=== PATIENT | female | born 1995 | race Caucasian/White ===

== ENCOUNTER 2016-11-04 18:34 | Emergency (ER) | payer OTHER, BC ==
[~2016-11-04] VITALS: Ht 157.5 cm; Wt 45.2 kg
[~2016-11-04 18:34] MED LIST: FLUO20CA36 PO; LEVO1TAB19 PO; POTTAB2 PO
[2016-11-04 18:51] VITALS: TEMP 37; Ht 157.5 cm; Wt 45.2 kg
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
[2016-11-04] MEDS ORDERED: OXYCODONE/ACETAMINOPHEN 5-325 TAB PO STA (19:45)
[2016-11-04] MEDS ORDERED: IBUPROFEN 600 MG TAB PO STA (19:45)
[2016-11-04] MEDS ORDERED: PERCOCET HOME PACK PO ONE (19:45)
[2016-11-04] MEDS ORDERED: OXYC-57 PO (19:48)
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
[2016-11-04] MEDS ORDERED: BCPILLS PO (20:18)
[2016-11-04] MEDS ORDERED: CITA20TA4 PO (20:18)
[2016-11-04] MEDS ORDERED: LORA-741 PO (20:18)
[2016-11-04 20:25] VITALS: BP 108/71; PULSE 88; O2SAT 100
== END 2016-11-04 20:25 | disposition home or self-care (01) ==
LOC: C.EDB 18:35 → C.EDD 20:25
DX: M25.562 Pain in left knee (principal); V49.9XXA Car occupant (driver) (passenger) injured in unspecified traffic accident, initial encounter

== ENCOUNTER 2017-06-26 20:07 | Emergency (ER) | payer BC ==
[~2017-06-26] VITALS: Ht 157.5 cm; Wt 45.5 kg
[~2017-06-26 20:07] MED LIST changes: +BCPILLS PO; +CITA20TA4 PO; -FLUO20CA36 PO; -LEVO1TAB19 PO; +LORA-741 PO; -POTTAB2 PO
[2017-06-26 20:19] VITALS: TEMP 36.6; Ht 157.5 cm; Wt 45.5 kg
--- NOTE | 2017-06-26 21:37 | EMERGENCY ROOM VISIT NOTE ---
History Report prepared by Lalo: Luan Ornelas Under the Supervision of: Dr. Ashvin Merlos M.D. First contact with patient: 21:25 Chief Complaint: HEMATURIA Stated Complaint: HEMATURIA Nursing Triage Summary: Hematuria starting today. Denies pain. History of UTI History of Present Illness The patient is a 22 year old female with a history of UTIs who presents to the Emergency Room with complaints of persistent hematuria that started around 2 and a half hours ago. She adds that she has had some burning with urination as well as increased frequency of urination. The patient was here in 2010 with similar symptoms and was diagnosed with hemorrhagic cystitis. She denies any back pain, nausea, vomiting, chest pain, shortness of breath, headaches, leg pain, leg swelling, or rashes. The patient notes no chance of . Source of History: patient Onset: 2 and a half hours ago Position: other (global - hematuria) Timing: other (persistent) Associated Symptoms: + urinary symptoms (increased frequency, burning with urination), No headache, No chest pain, No SOB, No nausea, No vomiting, No back pain, No rash Note: Associated symptoms: Denies leg pain or leg swelling. Review of Systems See HPI for pertinent positives & negatives. A total of 10 systems reviewed and were otherwise negative. Past Medical & Surgical Medical Problems: (1) Anorexia Old medical records were reviewed. Nurse's notes were reviewed and I agree with. Family History No pertinent family history Social History Smoking Status: Never Smoker Alcohol Use: none Housing Status: lives with family Occupation Status: employed, student Current/Historical Medications Scheduled Nitrofurantoin Monohyd Macrocr (Macrobid), 100 MG PO BID Allergies Coded Allergies: No Known Allergies (Unverified , 11/04/16) Physical Exam Vital Signs Date Time Temp Pulse Resp B/P (MAP) Pulse Ox O2 Delivery O2 Flow Rate FiO2 06/26/17 22:44 80 18 101/59 100 06/26/17 20:19 36.6 89 16 110/75 98 Room Air Physical Exam General: Well developed well nourished non ill-appearing young female in no acute distress, breathing comfortably on room air. Normal speech HEENT: Normal cephalic atraumatic. Pupils are equal round and reactive to light. Extraocular movements are intact. Oropharynx is pink with moist mucous membranes. No swelling of the mouth lips or tongue. Neck: Supple with a midline trachea. No meningeal signs or stiffness, no JVD or bruits. No Stridor. Chest: Clear to auscultation bilaterally. No wheezes or rhonchi. No increased work of breathing. Heart: regular rate and rhythm. Abdomen: Soft nontender, nondistended without rebound guarding or rigidity. Extremities: No cyanosis clubbing or edema. No calf tenderness or assymetry Spine/Back. Non tender to palpation. No CVA tenderness Skin: Good turgor without rashes. Neurologic exam: Cranial nerves two through 12 are intact. Motor and sensation are intact and symmetrical throughout. Medical Decision & Procedures Laboratory Results Test 06/26/17 21:15 Urine Color RED Urine Appearance CLOUDY (CLEAR) Urine pH 6.0 (4.5-7.5) Urine Specific [place] >= 1.030 (1.000-1.030) Urine Protein 2+ (NEG) Urine Glucose (UA) NEG (NEG) Urine Ketones TRACE (NEG) Urine Occult Blood 3+ (NEG) Urine Nitrite NEG (NEG) Urine Bilirubin NEG (NEG) Urine Urobilinogen POS (NEG) Urine Leukocyte Esterase TRACE (NEG) Urine RBC >30 /hpf (0-4) Urine WBC >30 /hpf (0-5) Urine Epithelial Cells >30 /lpf (0-5) Urine Bacteria 1+ (NEG) Urine Test NEG (NEG) Laboratory studies as stated above per my review. Medications Administered Medications (Trade) Dose Ordered Sig/Hailey Route Start Time Stop Time Status Last Admin Dose Admin Nitrofurantoin (Macrobid Homepack 100MG) 1 homepack UD ONCE PO 06/26/17 22:30 06/26/17 22:31 DC 06/26/17 22:43 1 HOMEPACK ED Course 2132: Past medical records reviewed. The patient was evaluated in room B8, and a complete history and physical examination were performed. 9: Upon reevaluation, the patient is resting comfortably. I discussed the results and treatment plan with her. She verbalized agreement of the treatment plan. The patient was discharged home. 2230: Ordered Macrobid Homepack 100MG 1 homepack PO. Medical Decision Differentials include but are not limited to: UTI, hemorrhagic cystitis, kidney stone, , anemia. This patient comes in as described above. She has frequency dysuria and hematuria. She's had hemorrhagic cystitis before. She looks well and is nontoxic. She is afebrile. Clinically, she has nothing to suggest pyelonephritis or kidney stone. She does not think did not is that she is . test confirms this. I will discharge her home. We will start her on Macrobid twice a day for 7 days. She was encouraged to return if: Worsening of symptoms, back pain, fever or chills, not tolerate fluids, any new problems or concerns. She should follow up with her doctor this week for recheck if not better. Medication Reconcilliation Current Medication List: was personally reviewed by me Blood Pressure Screening Patient's blood pressure: Normal blood pressure Impression Primary Impression: Hemorrhagic cystitis Scribe Attestation The scribe's documentation has been prepared under my direction and personally reviewed by me in its entirety. I confirm that the note above accurately reflects all work, treatment, procedures, and medical decision making performed by me. Departure Information Dispostion Home / Self-Care Prescriptions Nitrofurantoin Monohyd Macrocr (Macrobid) 100 Mg Cap 100 MG PO BID for 14 Days, #28 CAP Prov: Ashvin Merlos M.D. 06/26/17 Referrals Genia Carrizales D.O. (PCP) Patient Instructions My [facility] Additional Instructions Rest. Drink plenty of fluids. Use Macrobid 100 mg twice a day for 7 daysantibiotic Return to the ER if: Fever or chills, back pain, worsening symptoms, vomiting, any new problems or concerns. Follow-up with your doctor in a couple days for recheck if not better or return to ER any point if symptoms worsen
[2017-06-26] MEDS ORDERED: NITR-5 PO (21:48)
[2017-06-26 22:15] LABS: MANUAL MICROSCOPIC REQUIRED? YES; URINE APPEARANCE CLOUDY (CLEAR); URINE BILIRUBIN NEG (NEG); URINE COLOR RED; URINE NITRITE NEG (NEG); URINE SPECIFIC GRAVITY >= 1.030 (1.000-1.030); UROBILINOGEN POS (NEG)
[2017-06-26 22:20] LABS: PREG INTERNAL NEGATIVE QC NEG CLEAR BACKGROUND; PREG INTERNAL POSITIVE QC POS CONTROL LINE; REVIEW REQ? NO
[2017-06-26 22:22] LABS: URINE BACTERIA 1+ (NEG); URINE RBC >30 /hpf (0-4); URINE WBC >30 /hpf (0-5)
[2017-06-26] MEDS ORDERED: MACROBID 100MG HOME PACK 1 EA VIAL PO ONE (22:30)
[2017-06-26 22:44] VITALS: BP 101/59; PULSE 80; O2SAT 100
--- NOTE | 2017-06-29 19:19 | Pharmacy Progress Note ---
ED Pharmacist Culture FollowUp Date of Service: Jun 29, 2017. Patient was sent home with a prescription for nitrofurantoin, which should cover the Staph saprophyticus growing from the patient's urine culture.
== END 2017-06-26 22:45 | disposition home or self-care (01) ==
LOC: C.EDB 20:08
DX: N30.91 Cystitis, unspecified with hematuria (principal); Z87.440 Personal history of urinary (tract) infections

== ENCOUNTER → 2017-12-12 | Outpatient (CLI) | payer BC ==
--- NOTE | 2017-12-12 10:44 | DIAGNOSTIC IMAGING REPORT ---
PELVIC COMPLETE NON OB CLINICAL HISTORY: ABNORMAL UTERINE BLEEDING,N93.9,Z11.3 COMPARISON STUDY: None FINDINGS: The uterus measured 7.7 cm. The endometrial stripe measured 5 mm. The right ovary measured 4.0 cm maximum dimension with several small subcentimeter follicular cysts. Normal vascular flow.. The left ovary measured 3.5 cm maximum dimension with several small subcentimeter follicular cyst. Normal vascular flow.. There is no ultrasonographic evidence of ovarian torsion. It should be noted that ovarian torsion can be present with normal Doppler ultrasonographic findings. There was no evidence of pathologic free pelvic fluid. IMPRESSION: Normal study. The above report was generated using voice recognition software. It may contain grammatical, syntax or spelling errors. Electronically signed by: Yung Chisholm M.D. 12/12/2017 10:42 AM Dictated Date/Time: 12/12/2017 10:41 AM
== END | disposition home or self-care (01) ==
LOC: C.ULTR 09:53
PROVIDERS: ATTEND Physician Assistant
DX: Z11.3 Encounter for screening for infections with a predominantly sexual mode of transmission (principal); N93.9 Abnormal uterine and vaginal bleeding, unspecified

== ENCOUNTER 2020-04-30 07:44 | Inpatient (IN) ==
[2020-04-30] MEDS ORDERED: PENICILLIN G POTASSIUM 6 MU in DEXTROSE 5% 250 ML IV STA (08:01)
[2020-04-30] MEDS ORDERED: OXYTOCIN 30 UNITS/500 ML BAG IV PRN ×2 (08:01)
--- NOTE | 2020-04-30 08:06 | History & Physical Report ---
Date of Service April 30, 2020 Induction at 39+ weeks for suspected large baby we have discussed this option of induction to avoid complications from further large baby we also discussed the option of section her last ultrasound suggested a baby and the estimated weight of 78 percentile and we have recommended induction the patient is amenable to this today Assessment & Plan (1) Macrosomia: Cervix now favorable after cervical Jamison last night we will start Pitocin penicillin for GBS positive patient's questions answered we do not have access to rapid COVID testing thus we will follow hospital policy and with appropriate PPE for delivery Admission and Anticipated Discharge Date Admission Date: April 30, 2020 History of Present Illness Primary Care Provider: Zabrina Donnelly PA-C Allergies Allergy/AdvReac Type Severity Reaction Status Date / Time No Known Allergies Allergy Verified 04/30/20 08:03 Home Medications Home Medications Medication Instructions Recorded Confirmed Type prenat.vits,olga,[id number]-iuoo-ygkpu 1 tab PO DAILY 09/04/19 04/30/20 History ferrous sulfate [iron] 25 mg PO DAILY 04/29/20 04/30/20 History Patient History Social History Preferred Language: Wolof marital status: marital status details: Gallo Person (29) [phone] Current Living Situation: Spouse Current Living Situation Comment: lives with spouse, 3 dogs, 1 cat, changing litter current occupational status: employed 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) Vital Signs (Past 12 Hours) Vital Signs Pulse BP 04/30/20 07:54 109 H 120/77 Coding Level of Care Code None Diagnoses Macrosomia P08.0
[2020-04-30 08:32] LABS: Hematocrit (blood only) 34.3 % (37-47); Hemoglobin 11.6 g/dL (12.0-16.0); Mean Corpuscular Hemoglobin 29.4 pg (25-34); Mean Corpuscular Volume 86.8 fL (80-100); Platelet Count 370 K/uL (130-400); RDW Coefficient of Variation 13.5 % (11.5-14.5); RDW Standard Deviation 43.4 fL (36.4-46.3); Red Blood Count 3.95 M/uL (4.2-5.4); White Blood Count 12.24 K/uL (4.8-10.8)
[2020-04-30 08:33] LABS: Mean Corpuscular Hgb Conc 33.8 g/dL (32-36)
[2020-04-30] MEDS: LACTATED RINGER'S 1,000 ML IV PRN ×2 (08:45→12:10)
[2020-04-30] MEDS ORDERED: ePHEDrine sulfate 50 MG/ML AMP ONE (11:36)
[2020-04-30] MEDS ORDERED: BUPIVACAINE 0.25% 30 ML VIAL ONE (11:37)
[2020-04-30] MEDS ORDERED: fentaNYL citrate 100 MCG/2 ML VIAL ONE (11:37)
[2020-04-30] MEDS ORDERED: fentaNYL 2MCG/ML ROPIV 1.25MG/ML 100 ML BAG EPI ONE (11:37)
--- NOTE | 2020-04-30 12:10 | Anesthesiology Consultation ---
Date of Service April 30, 2020 Assessment & Plan (1) Encounter for pre-operative examination: Chart Review Chart Review: Patient NOT seen in Pre Admission Testing and Acceptable Risk for Labor Epidural Consults Requested none ASA ASA2 Proposed Anesthesia Anesthesia Type: Labor Epidural Risk / Benefits Reviewed With: PT / POA / Parent / Guardian, Accepts Plan and Informed Consent Obtained History Height/Weight Height: 5 ft 2 in Weight: 69.853 kg Allergies Allergy/AdvReac Type Severity Reaction Status Date / Time No Known Allergies Allergy Verified 04/30/20 08:03 Medications Home Medications Medication Instructions Recorded Confirmed Last Taken prenat.vits,olga,[id number]-veki-xddzp 1 tab PO DAILY 09/04/19 04/30/20 04/29/20 21:00 ferrous sulfate [iron] 25 mg PO DAILY 04/29/20 04/30/20 04/28/20 08:00 Active Medications Generic Name Dose Route Start Last Admin Trade Name Freq PRN Reason Stop Dose Admin Lactated Ringer's 1,000 mls @ 125 mls/hr 04/30/20 08:01 04/30/20 12:10 Lr IV 05/02/20 08:00 125 mls/hr .Q8H PRN Administration L&D Protocol Protocol Penicillin G Potassium 3 mu/ 106 mls @ 100 mls/hr 04/30/20 08:01 04/30/20 12:32 Dextrose IV 05/10/20 08:00 100 mls/hr Q4H PRN Administration Give until delivery Oxytocin 30 units in 500 mls @ 12 mls/hr 04/30/20 08:01 04/30/20 12:39 Pitocin IV 05/02/20 08:00 0.72 units/hr .Q24H PRN 12 mls/hr Labor Induction/Augmentation Titration Protocol 0.72 UNITS/HR NPO Date Last Intake of Fluids: 04/30/20 Time Last Intake of Fluids: 12:07 Date Last Intake of Solids: 04/30/20 Time Last Intake of Solids: 07:00 Exercise / Class Metabolic Activity II 4-5 Yardwork/Stairs/Walk up hill Past Anesthesia History No Hx of Anesthesia Complications History of PONV History of PONV Social History Smoking Status: Never smoker Hx Alcohol Use: No Hx Substance Use: No substance use type: does not use Review of Systems Patient denies history of abnormal bleeding or bleeding disorder. Patient denies active use of anticoagulants other than low dose aspirin. Patient denies numbness, tingling or weakness in lower extremities. Negative for chest pain or shortness of breath. Patient denies active symptoms of GERD. Physical Exam Vital Signs Last Vital Signs Temp 36.8 C 04/30/20 11:00 Pulse 99 H 04/30/20 12:00 Resp 18 04/30/20 11:00 BP 105/75 04/30/20 11:51 Pulse Ox 98 04/30/20 12:00 Constitutional not obese (Gravid uterus) ENMT Mouth: no TMJ abnormality and oral opening not small Thyromental Distance: > or= 3.5 Finger Breadths Mallampati Class: I Neck normal visual inspection; neck extension not limited Respiratory normal respiratory effort Auscultation: lungs clear to auscultation bilaterally Cardiovascular Rate/Rhythm: regular rate and regular rhythm Heart Sounds: no murmur Neurologic moves all extremities Motor/Sensory: no sensory deficit Psychiatric Orientation: alert and oriented x 3 Testing Laboratory Results 04/30/20 08:18
[2020-04-30] MEDS: PENICILLIN G POTASSIUM 3 MU in DEXTROSE 5% 100 ML IV PRN ×2 (12:32→16:27)
[2020-04-30] MEDS ORDERED: ONDANSETRON INJ 2 MG/ML 2 ML VIAL IV PRN ×2 (12:47→19:05)
[2020-04-30] MEDS ORDERED: fentaNYL 2MCG/ML ROPIV 1.25MG/ML 100 ML BAG EPI PRN (12:47)
[2020-04-30] MEDS ORDERED: NALOXONE HCL 1 MG in SODIUM CHLORIDE 0.9% 1000ML 1,000 ML IV PRN ×2 (12:47→19:05)
[2020-04-30] MEDS ORDERED: DiphenhydrAMINE HCL 50 MG/ML VIAL IV PRN ×2 (12:47→19:05)
[2020-04-30] MEDS ORDERED: NALOXONE HCL 0.4 MG/1 ML VIAL/CARP IV PRN ×2 (12:47→19:05)
[2020-04-30] MEDS ORDERED: ePHEDrine sulfate 50 MG/ML AMP IV PRN ×3 (12:47→19:05)
--- NOTE | 2020-04-30 14:24 | Labor Progress Brief Note ---
Date of Service April 30, 2020 Patient is on Pitocin has received 2 doses of antibiotics for group B strep her contraction pattern is good at this stage with an external toco she was 4 cm when we rupture her membranes. If there is no change in the next [address] an IUPC we did discuss the issue that this is thought to be a larger baby and she is a smaller person so our threshold for might be somewhat lower however will make her best effort and heart rate currently is category 1 Assessment & Plan Admission and Anticipated Discharge Date Admission Date: April 30, 2020 Results & Data ([facility]) Vital Signs (Past 12 Hours) Vital Signs Temp Pulse Resp BP Pulse Ox 04/30/20 14:20 98 H 97 04/30/20 14:17 95 H 109/63 04/30/20 14:15 93 H 96 04/30/20 14:12 92 H 110/69 04/30/20 14:10 95 H 96 04/30/20 14:08 92 H 111/70 04/30/20 14:05 93 H 96 04/30/20 14:01 93 H 108/64 04/30/20 14:00 89 96 04/30/20 13:58 86 110/67 04/30/20 13:55 97 H 97 04/30/20 13:52 89 116/70 04/30/20 13:50 91 H 97 04/30/20 13:47 85 117/71 04/30/20 13:45 89 97 04/30/20 13:42 90 118/68 04/30/20 13:40 94 H 98 04/30/20 13:37 99 H 131/61 04/30/20 13:35 86 98 04/30/20 13:30 95 H 18 97 04/30/20 13:26 91 H 117/73 04/30/20 13:25 88 97 04/30/20 13:24 98 H 113/77 04/30/20 13:20 103 H 97 04/30/20 13:15 94 H 18 118/68 97 04/30/20 13:13 100 H 125/69 04/30/20 13:11 107 H 112/66 04/30/20 13:10 103 H 97 04/30/20 13:09 96 H 112/65 04/30/20 13:07 106 H 116/67 04/30/20 13:05 96 H 97 04/30/20 13:04 89 118/66 04/30/20 13:03 108 H 107/69 04/30/20 13:01 100 H 104/63 04/30/20 13:00 98.1 F 99 H 16 97 04/30/20 12:59 107 H 110/62 04/30/20 12:57 106 H 105/64 04/30/20 12:55 101 H 101/58 L 97 04/30/20 12:53 100 H 103/58 L 04/30/20 12:51 107 H 118/71 04/30/20 12:50 112 H 98 04/30/20 12:49 105 H 116/64 04/30/20 12:47 113 H 121/68 04/30/20 12:45 97 H 18 110/69 97 04/30/20 12:43 99 H 112/66 04/30/20 12:41 109 H 122/69 04/30/20 12:40 114 H 97 04/30/20 12:39 108 H 109/66 04/30/20 12:37 101 H 106/59 L 04/30/20 12:35 101 H 104/56 L 97 04/30/20 12:33 100 H 106/61 04/30/20 12:31 105 H 16 110/71 04/30/20 12:30 105 H 98 04/30/20 12:29 103 H 112/71 04/30/20 12:25 103 H 99 04/30/20 12:20 95 H 99 04/30/20 12:15 99 H 100 04/30/20 12:10 106 H 100 04/30/20 12:05 98 H 99 04/30/20 12:00 99 H 98 04/30/20 11:55 90 98 04/30/20 11:51 103 H 105/75 04/30/20 11:50 103 H 99 04/30/20 11:45 91 H 99 04/30/20 11:00 98.2 F 04/30/20 10:51 93 H 123/74 04/30/20 09:53 86 112/69 04/30/20 08:50 110 H 118/76 04/30/20 08:01 98.1 F 18 04/30/20 07:54 109 H 120/77 Coding Level of Care Code None
--- NOTE | 2020-04-30 15:50 | Labor Progress Brief Note ---
Date of Service April 30, 2020 Patient is still 4 cm there is some increased molding as well I have placed an IUPC and her [place] units are 270 per 10 minutes this is more than adequate labor and she is on 20 milliunits of Pitocin the baby is suspected to be large there is no descent of the baby either is -2 station patient is aware that her is likely we will reassess after 5 PM Assessment & Plan Admission and Anticipated Discharge Date Admission Date: April 30, 2020 Results & Data ([facility]) Vital Signs (Past 12 Hours) Vital Signs Temp Pulse Resp BP Pulse Ox 04/30/20 15:48 86 101/58 L 04/30/20 15:45 93 H 96 04/30/20 15:40 94 H 96 04/30/20 15:35 104 H 96 04/30/20 15:34 123 H 113/79 04/30/20 15:30 105 H 96 04/30/20 15:25 99 H 96 04/30/20 15:20 97 H 96 04/30/20 15:19 94 H 115/69 04/30/20 15:15 95 H 97 04/30/20 15:10 95 H 97 04/30/20 15:05 96 H 96 04/30/20 15:04 90 112/66 04/30/20 15:00 99 H 96 04/30/20 14:55 98.6 F 94 H 18 96 04/30/20 14:50 102 H 96 04/30/20 14:48 102 H 122/61 04/30/20 14:45 114 H 16 97 04/30/20 14:40 89 96 04/30/20 14:35 86 97 04/30/20 14:31 93 H 109/68 04/30/20 14:30 89 18 95 04/30/20 14:27 98 H 110/66 04/30/20 14:25 99 H 96 04/30/20 14:23 98 H 111/69 04/30/20 14:20 98 H 97 04/30/20 14:17 95 H 109/63 04/30/20 14:15 93 H 16 96 04/30/20 14:12 92 H 110/69 04/30/20 14:10 95 H 96 04/30/20 14:08 92 H 111/70 04/30/20 14:05 93 H 96 04/30/20 14:01 93 H 108/64 04/30/20 14:00 89 18 96 04/30/20 13:58 86 110/67 04/30/20 13:55 97 H 97 04/30/20 13:52 89 116/70 04/30/20 13:50 91 H 97 04/30/20 13:47 85 117/71 04/30/20 13:45 89 16 97 04/30/20 13:42 90 118/68 04/30/20 13:40 94 H 98 04/30/20 13:37 99 H 131/61 04/30/20 13:35 86 98 04/30/20 13:30 95 H 18 97 04/30/20 13:26 91 H 117/73 04/30/20 13:25 88 97 04/30/20 13:24 98 H 113/77 04/30/20 13:20 103 H 97 04/30/20 13:15 94 H 18 118/68 97 04/30/20 13:13 100 H 125/69 04/30/20 13:11 107 H 112/66 04/30/20 13:10 103 H 97 04/30/20 13:09 96 H 112/65 04/30/20 13:07 106 H 116/67 04/30/20 13:05 96 H 97 04/30/20 13:04 89 118/66 04/30/20 13:03 108 H 107/69 04/30/20 13:01 100 H 104/63 04/30/20 13:00 98.1 F 99 H 16 97 04/30/20 12:59 107 H 110/62 04/30/20 12:57 106 H 105/64 04/30/20 12:55 101 H 101/58 L 97 04/30/20 12:53 100 H 103/58 L 04/30/20 12:51 107 H 118/71 04/30/20 12:50 112 H 98 04/30/20 12:49 105 H 116/64 04/30/20 12:47 113 H 121/68 04/30/20 12:45 97 H 18 110/69 97 04/30/20 12:43 99 H 112/66 04/30/20 12:41 109 H 122/69 04/30/20 12:40 114 H 97 0720 12:39 108 H 109/66 04/30/20 12:37 101 H 106/59 L 04/30/20 12:35 101 H 104/56 L 97 04/30/20 12:33 100 H 106/61 04/30/20 12:31 105 H 16 110/71 04/30/20 12:30 105 H 98 04/30/20 12:29 103 H 112/71 04/30/20 12:25 103 H 99 04/30/20 12:20 95 H 99 04/30/20 12:15 99 H 100 04/30/20 12:10 106 H 100 04/30/20 12:05 98 H 99 04/30/20 12:00 99 H 98 04/30/20 11:55 90 98 04/30/20 11:51 103 H 105/75 04/30/20 11:50 103 H 99 04/30/20 11:45 91 H 99 04/30/20 11:00 98.2 F 04/30/20 10:51 93 H 123/74 04/30/20 09:53 86 112/69 04/30/20 08:50 110 H 118/76 04/30/20 08:01 98.1 F 04/30/20 07:54 109 H 120/77 Coding Level of Care Code None
--- NOTE | 2020-04-30 17:09 | Labor Progress Brief Note ---
Date of Service April 30, 2020 [facility] shows excellent contractions cervix is reassessed she is still 4 cm -2 station there is some cervical swelling noted and increased At palpated The heart rate is category 1 baby I have offered to keep going with induction of labor I have also offered as there was a worried this baby was too big the patient wishes to proceed with I think this is reasonable considering her suspicions of the baby. Again alternative of labor was discussed section. The patient was counseled to the nature of the procedure including alternatives such as labor. Risks were discussed including bleeding infection injury to bowel bladder ureter vessels and even baby. Deep Vein thrombosis, pulmonary embolus discussed. Breakdown of incision reviewed. Deep vein thrombosis pulmonary embolus hernia and failure of the incision to heal were discussed Patient verbalized understanding of this and was given ample time to ask questions Assessment & Plan Admission and Anticipated Discharge Date Admission Date: April 30, 2020 Results & Data ([facility]) Vital Signs (Past 12 Hours) Vital Signs Temp Pulse Resp BP Pulse Ox 04/30/20 17:05 101 H 97 04/30/20 17:04 103 H 112/73 04/30/20 17:00 105 H 95 04/30/20 16:55 96 H 96 04/30/20 16:52 85 94 04/30/20 16:50 87 95 04/30/20 16:49 93 H 101/56 L 04/30/20 16:45 98 H 96 04/30/20 16:40 93 H 98 04/30/20 16:35 91 H 96 04/30/20 16:33 104 H 103/56 L 04/30/20 16:30 94 H 18 96 04/30/20 16:25 92 H 97 04/30/20 16:20 91 H 96 04/30/20 16:18 90 102/55 L 04/30/20 16:15 95 H 96 04/30/20 16:10 98 H 97 04/30/20 16:05 93 H 97 04/30/20 16:04 101 H 106/66 04/30/20 16:00 87 18 96 04/30/20 15:55 91 H 96 04/30/20 15:50 103 H 97 04/30/20 15:48 86 101/58 L 04/30/20 15:45 93 H 96 04/30/20 15:40 94 H 96 04/30/20 15:35 104 H 96 04/30/20 15:34 123 H 113/79 04/30/20 15:30 105 H 18 96 04/30/20 15:25 99 H 96 04/30/20 15:20 97 H 96 04/30/20 15:19 94 H 115/69 04/30/20 15:15 95 H 97 04/30/20 15:10 95 H 97 04/30/20 15:05 96 H 96 04/30/20 15:04 90 112/66 04/30/20 15:00 99 H 96 04/30/20 14:55 98.6 F 94 H 18 96 04/30/20 14:50 102 H 96 04/30/20 14:48 102 H 122/61 04/30/20 14:45 114 H 16 97 04/30/20 14:40 89 96 04/30/20 14:35 86 97 04/30/20 14:31 93 H 109/68 04/30/20 14:30 89 18 95 04/30/20 14:27 98 H 110/66 04/30/20 14:25 99 H 96 04/30/20 14:23 98 H 111/69 04/30/20 14:20 98 H 97 04/30/20 14:17 95 H 109/63 04/30/20 14:15 93 H 16 96 04/30/20 14:12 92 H 110/69 04/30/20 14:10 95 H 96 04/30/20 14:08 92 H 111/70 04/30/20 14:05 93 H 96 04/30/20 14:01 93 H 108/64 04/30/20 14:00 89 18 96 04/30/20 13:58 86 110/67 04/30/20 13:55 97 H 97 04/30/20 13:52 89 116/70 04/30/20 13:50 91 H 97 04/30/20 13:47 85 117/71 04/30/20 13:45 89 16 97 04/30/20 13:42 90 118/68 04/30/20 13:40 94 H 98 04/30/20 13:37 99 H 131/61 04/30/20 13:35 86 98 04/30/20 13:30 95 H 18 97 04/30/20 13:26 91 H 117/73 04/30/20 13:25 88 97 04/30/20 13:24 98 H 113/77 04/30/20 13:20 103 H 97 04/30/20 13:15 94 H 18 118/68 97 04/30/20 13:13 100 H 125/69 04/30/20 13:11 107 H 112/66 04/30/20 13:10 103 H 97 04/30/20 13:09 96 H 112/65 04/30/20 13:07 106 H 116/67 04/30/20 13:05 96 H 97 04/30/20 13:04 89 118/66 04/30/20 13:03 108 H 107/69 04/30/20 13:01 100 H 104/63 04/30/20 13:00 98.1 F 99 H 16 97 04/30/20 12:59 107 H 110/62 04/30/20 12:57 106 H 105/64 04/30/20 12:55 101 H 101/58 L 97 04/30/20 12:53 100 H 103/58 L 04/30/20 12:51 107 H 118/71 04/30/20 12:50 112 H 98 04/30/20 12:49 105 H 116/64 04/30/20 12:47 113 H 121/68 04/30/20 12:45 97 H 18 110/69 97 04/30/20 12:43 99 H 112/66 04/30/20 12:41 109 H 122/69 04/30/20 12:40 114 H 97 04/30/20 12:39 108 H 109/66 04/30/20 12:37 101 H 106/59 L 04/30/20 12:35 101 H 104/56 L 97 04/30/20 12:33 100 H 106/61 04/30/20 12:31 105 H 16 110/71 04/30/20 12:30 105 H 98 04/30/20 12:29 103 H 112/71 04/30/20 12:25 103 H 99 04/30/20 12:20 95 H 99 04/30/20 12:15 99 H 100 04/30/20 12:10 106 H 100 04/30/20 12:05 98 H 99 04/30/20 12:00 99 H 98 04/30/20 11:55 90 98 04/30/20 11:51 103 H 105/75 04/30/20 11:50 103 H 99 04/30/20 11:45 91 H 99 04/30/20 11:00 98.2 F 04/30/20 10:51 93 H 123/74 04/30/20 09:53 86 112/69 04/30/20 08:50 110 H 118/76 04/30/20 08:01 98.1 F 04/30/20 07:54 109 H 120/77 Coding Level of Care Code None
[2020-04-30] MEDS ORDERED: CEFAZOLIN 2000MG 2,000 MG/15 ML SYR IV SCH (17:15)
[2020-04-30] MEDS ORDERED: LACTATED RINGER'S 1,000 ML IV SCH ×2 (17:15→19:11)
[2020-04-30] MEDS ORDERED: CITRIC ACID/SODIUM CITRATE 15 ML UDC PO SCH (17:15)
[2020-04-30] MEDS ORDERED: LIDOCAINE/EPINEPHRINE 2% 1:200,000 20 ML SDV ONE (17:30)
[2020-04-30] MEDS ORDERED: ONDANSETRON INJ 2 MG/ML 2 ML VIAL ONE (17:46)
[2020-04-30] MEDS ORDERED: OXYTOCIN 10 UNITS/ML VIAL ONE (17:59)
[2020-04-30] MEDS ORDERED: MoRPHine SULFATE PF 1 MG/ML 10 ML AMP/VIAL ONE (18:16)
[2020-04-30] MEDS ORDERED: KETOROLAC 30 MG/ML VIAL ONE (18:25)
[2020-04-30] MEDS ORDERED: PHENYLEPHRINE 100MCG/ML 5ML SYR ONE (18:39)
[2020-04-30] MEDS ORDERED: PROMETHAZINE HCL INJ 25 MG/ML 1 ML VIAL ONE (18:39)
--- NOTE | 2020-04-30 18:43 | Operative Report ---
PG Post Operative Report Pre & Post Diagnosis Operation Date: 04/30/20 17:45 <No data on this case meets the specified criteria> Failure to progress in labor I identified the patient and participated in the time-out.: Yes Procedure Operation Date: 04/30/20 17:45 <No data on this case meets the specified criteria> Low segment transverse section Surgeon Cara Garcia MD, FACOG [employer] . Estimated Blood Loss 500 Findings Consistent with Post-Op Diagnosis Specimens Cord gases and cord blood Description of Procedure Regional anesthetic was given by anesthesia patient had a Jamison catheter inserted by nursing patient was prepped and draped in supine position with a leftward tilt preoperative antibiotics were given timeout performed Pickups with teeth were used to test the skin site and it was found adequate for incision scalpel used to make a Pfannenstiel incision cutting down through subcutaneous fat through the fascia fascia was then dissected laterally with the curved Osman's fascia was released superiorly and inferiorly from the rectus muscles with the curved Osman scissors, rectus muscle split peritoneal cavity entered in a superior location. Opening enlarged to allow exposure bladder retractor placed Metzenbaums used to dissect away the bladder flap low segment transverse incision made on the uterus with scalpel entry was done bluntly with the creel operator's finger hysterotomy incision extended with the creel operator's finger in the usual fashion baby was delivered then by flexion of the head and pressure from the digital sales assistant on the abdomen mouth and then nares were suctioned baby was then delivered fully without difficulty without excessive force live vigorous infant cord clamped and cut cord gases obtained cord blood obtained placenta removed manually within ensured all placenta removed with a moist lap sponge uterus exteriorized IV Pitocin had been started by anesthesia and uterine tone improved. The uterus was closed in 2 layers first layer and 0 Monocryl running locked second layer 0 Monocryl nonlocked after generous irrigation and suction of the cul-de-sac and bladder flap regions hemostasis was excellent uterus was placed back in the peritoneal cavity and hemostasis was excellent rectus muscles were inspected and found to be dry fascia closed with 0 Vicryl subcutaneous fat closed with 3-0 Vicryl prior to this subcutaneous fat was irrigated skin closed with 4-0 subcuticular Monocryl incision Steri-Stripped urine was clear at the end of the procedure uterus and adnexa were normal I attest to the content of the Intraoperative Record and any orders documented therein. Any exceptions are noted below.
[2020-04-30] MEDS ORDERED: HYDROmorphone INJ 0.5 MG/0.5 ML SYR IV PRN (19:05)
[2020-04-30] MEDS ORDERED: LACTATED RINGER'S 500 ML IV PRN (19:05)
[2020-04-30] MEDS ORDERED: PROMETHAZINE HCL 25 MG in SODIUM CHLORIDE 0.9% 50 ML IV PRN (19:05)
[2020-04-30] MEDS ORDERED: NALOXONE HCL 0.08 MG in SYRINGE 1.8 ML IV PRN (19:05)
[2020-04-30] MEDS ORDERED: ACETAMINOPHEN 1000 MG/100 ML IV IV PRN (19:05)
[2020-04-30] MEDS ORDERED: ATROPINE SULFATE 0.1 MG/ML 10ML SYR IV PRN (19:05)
[2020-04-30] MEDS ORDERED: MoRPHine SULFATE PF 1 MG/ML 10 ML AMP/VIAL EPI ONE (19:05)
--- NOTE | 2020-04-30 19:05 | Anesthesia Procedure Note ---
Date of Service April 30, 2020 Anesthesia Post Epidural Note Vital Signs Vital Signs: Temp Pulse Resp BP Pulse Ox 37.0 C 93 H 22 93/55 L 95 04/30/20 14:55 04/30/20 19:03 04/30/20 17:30 04/30/20 19:03 04/30/20 19:03 Pain Intensity Bilateral Abdomen: Pain Intensity: 3 Notes Mental Status: alert / awake / arousable and participated in evaluation Nausea / Vomiting: adequately controlled Pain: adequately controlled Airway Patency, RR, SpO2: stable & adequate BP & HR: stable & adequate Hydration State: stable & adequate Neuraxial Anesthesia: was administered and sensory block is resolving Anesthetic Complications: no major complications apparent and Pt Satisfied with anesthetic care Epidural: Removed without complications and With tip intact Notes: Epidural site clean, dry and intact. No signs of edema, erythema or bruising at insertion site. Pt instructed to request anesthesia if she has residual lower extremity numbness or if she develops lower extremity pain or weakness, back pain or headache.
[2020-04-30 19:06] LABS: Base Excess Cord Arterial Bld -0.3 mEq/L (-9-1.8); CO2 Cord Arterial Blood 66 mmHg (39.1-73.5); HCO3 Cord Arterial Blood 29 mmol/L (19.7-28.5); PO2 Cord Arterial Blood 20 mmHg (4.1-31.7); pH Cord Arterial Blood 7.26 (7.1-7.38)
[2020-04-30] MEDS ORDERED: SUPERCREAM 0.870% 15 GM JAR EXT PRN (19:11)
[2020-04-30] MEDS ORDERED: DIPHTHERIA/TETANUS/PERTUSSIS 0.5 ML SYR/VIAL IM ONE (19:11)
[2020-04-30] MEDS ORDERED: MAGNESIUM HYDROXIDE SUSP 30 ML UDC PO PRN (19:11)
[2020-04-30] MEDS ORDERED: SENNA 8.6 MG TAB PO PRN (19:11)
[2020-04-30] MEDS ORDERED: HYDROCORTISONE ACETATE 25 MG SUPP PR PRN (19:11)
[2020-04-30] MEDS ORDERED: BENZOCAINE 20% AER SPR 82.5 GM CAN EXT PRN (19:11)
[2020-04-30 19:12] LABS: Oxygen Sat Cord Arterial Blood < 60.0 % (<60)
[2020-04-30 19:13] LABS: Base Excess Cord Venous Blood -1.6 mEq/L (-7.7-1.9); Cord Venous Blood HCO3 25 mmol/L (18.4-26.8); Cord Venous Blood PCO2 47 mmHg (30.4-57.2); Cord Venous Blood PO2 35 mmHg (14.1-43.3); Cord Venous Blood pH 7.34 (7.20-7.44); O2 Saturation Cord Venous Bld 73.6 % (<68)
[2020-04-30] MEDS ORDERED: SODIUM CHLORIDE 0.9% 1000ML 1,000 ML IV SCH (19:15)
[2020-04-30] MEDS ORDERED: DC INTRASPINAL MORPHINE SCH (19:15)
[2020-04-30] MEDS ORDERED: NO NARCOTICS OR SEDATIVES SCH (19:15)
--- NOTE | 2020-04-30 19:16 | Anesthesiology Progress Note ---
Date of Service April 30, 2020 Anesthesia Post Procedure Vital Signs Vital Signs: Temp Pulse Resp BP Pulse Ox 04/30/20 19:13 84 98/58 L 95 04/30/20 19:08 89 96 04/30/20 19:03 93 H 93/55 L 95 04/30/20 18:58 94 H 96 04/30/20 18:53 92 H 96/50 L 93 04/30/20 17:48 122 H 113/70 04/30/20 17:45 110 H 97 04/30/20 17:40 108 H 96 04/30/20 17:39 105 H 94 04/30/20 17:35 102 H 98 04/30/20 17:33 107 H 117/79 04/30/20 17:30 106 H 22 97 04/30/20 17:25 106 H 97 04/30/20 17:20 116 H 95 04/30/20 17:18 116 H 118/78 04/30/20 17:15 109 H 96 04/30/20 17:10 115 H 96 04/30/20 17:05 101 H 97 04/30/20 17:04 103 H 112/73 04/30/20 17:00 105 H 95 04/30/20 16:55 96 H 96 04/30/20 16:52 85 94 04/30/20 16:50 87 95 04/30/20 16:49 93 H 101/56 L 04/30/20 16:45 98 H 96 04/30/20 16:40 93 H 98 04/30/20 16:35 91 H 96 04/30/20 16:33 104 H 103/56 L 04/30/20 16:30 94 H 18 96 04/30/20 16:25 92 H 97 04/30/20 16:20 91 H 96 04/30/20 16:18 90 102/55 L 04/30/20 16:15 95 H 96 04/30/20 16:10 98 H 97 04/30/20 16:05 93 H 97 04/30/20 16:04 101 H 106/66 04/30/20 16:00 87 18 96 04/30/20 15:55 91 H 96 04/30/20 15:50 103 H 97 04/30/20 15:48 86 101/58 L 04/30/20 15:45 93 H 96 04/30/20 15:40 94 H 96 04/30/20 15:35 104 H 96 04/30/20 15:34 123 H 113/79 04/30/20 15:30 105 H 18 96 04/30/20 15:25 99 H 96 04/30/20 15:20 97 H 96 04/30/20 15:19 94 H 115/69 04/30/20 15:15 95 H 97 04/30/20 15:10 95 H 97 04/30/20 15:05 96 H 96 04/30/20 15:04 90 112/66 04/30/20 15:00 99 H 96 04/30/20 14:55 37.0 C 94 H 18 96 04/30/20 14:50 102 H 96 04/30/20 14:48 102 H 122/61 04/30/20 14:45 114 H 16 97 04/30/20 14:40 89 96 04/30/20 14:35 86 97 04/30/20 14:31 93 H 109/68 04/30/20 14:30 89 18 95 04/30/20 14:27 98 H 110/66 04/30/20 14:25 99 H 96 04/30/20 14:23 98 H 111/69 04/30/20 14:20 98 H 97 04/30/20 14:17 95 H 109/63 04/30/20 14:15 93 H 16 96 04/30/20 14:12 92 H 110/69 04/30/20 14:10 95 H 96 04/30/20 14:08 92 H 111/70 04/30/20 14:05 93 H 96 04/30/20 14:01 93 H 108/64 04/30/20 14:00 89 18 96 04/30/20 13:58 86 110/67 04/30/20 13:55 97 H 97 04/30/20 13:52 89 116/70 04/30/20 13:50 91 H 97 04/30/20 13:47 85 117/71 04/30/20 13:45 89 16 97 04/30/20 13:42 90 118/68 04/30/20 13:40 94 H 98 04/30/20 13:37 99 H 131/61 04/30/20 13:35 86 98 04/30/20 13:30 95 H 18 97 07/10/20 13:26 91 H 117/73 04/30/20 13:25 88 97 04/30/20 13:24 98 H 113/77 04/30/20 13:20 103 H 97 04/30/20 13:15 94 H 18 118/68 97 04/30/20 13:13 100 H 125/69 04/30/20 13:11 107 H 112/66 04/30/20 13:10 103 H 97 04/30/20 13:09 96 H 112/65 04/30/20 13:07 106 H 116/67 04/30/20 13:05 96 H 97 04/30/20 13:04 89 118/66 04/30/20 13:03 108 H 107/69 04/30/20 13:01 100 H 104/63 04/30/20 13:00 36.7 C 99 H 16 97 04/30/20 12:59 107 H 110/62 04/30/20 12:57 106 H 105/64 04/30/20 12:55 101 H 101/58 L 97 04/30/20 12:53 100 H 103/58 L 04/30/20 12:51 107 H 118/71 04/30/20 12:50 112 H 98 04/30/20 12:49 105 H 116/64 04/30/20 12:47 113 H 121/68 04/30/20 12:45 97 H 18 110/69 97 04/30/20 12:43 99 H 112/66 04/30/20 12:41 109 H 122/69 04/30/20 12:40 114 H 97 04/30/20 12:39 108 H 109/66 04/30/20 12:37 101 H 106/59 L 04/30/20 12:35 101 H 104/56 L 97 04/30/20 12:33 100 H 106/61 04/30/20 12:31 105 H 16 110/71 04/30/20 12:30 105 H 98 04/30/20 12:29 103 H 112/71 04/30/20 12:25 103 H 99 04/30/20 12:20 95 H 99 04/30/20 12:15 99 H 100 04/30/20 12:10 106 H 100 04/30/20 12:05 98 H 99 04/30/20 12:00 99 H 98 04/30/20 11:55 90 98 04/30/20 11:51 103 H 105/75 04/30/20 11:50 103 H 99 04/30/20 11:45 91 H 99 04/30/20 11:00 36.8 C 18 04/30/20 10:51 93 H 123/74 04/30/20 09:53 86 112/69 04/30/20 08:50 110 H 118/76 04/30/20 08:01 36.7 C 04/30/20 07:54 109 H 120/77 Pain Intensity Bilateral Abdomen: Pain Intensity: 3 Transfer of Care Handoff Completed per policy Notes Mental Status: alert / awake / arousable and participated in evaluation Nausea / Vomiting: adequately controlled Pain: adequately controlled Airway Patency, RR, SpO2: stable & adequate BP & HR: stable & adequate Hydration State: stable & adequate Neuraxial Anesthesia: was administered and sensory block is resolving Anesthetic Complications: no major complications apparent and Pt Satisfied with anesthetic care
[2020-04-30] MEDS: OXYTOCIN 20 UNITS in LACTATED RINGER'S 1,000 ML IV SCH (19:38)
[2020-04-30] MEDS: SIMETHICONE 80 MG CHEW PO SCH (21:14)
[2020-04-30] MEDS: DOCUSATE SODIUM 100 MG CAP PO SCH (21:14)
[2020-04-30] MEDS: KETOROLAC 30 MG/ML VIAL IV PRN (21:27)
[2020-05-01] MEDS: OXYTOCIN 20 UNITS in LACTATED RINGER'S 1,000 ML IV SCH (04:04)
[2020-05-01 05:40] LABS: Basophils # (auto) 0.01 K/uL (0-0.2); Basophils % (auto) 0.1 %; Eosinophils # (auto) 0.02 K/uL (0-0.5); Eosinophils % (auto) 0.1 %; Hematocrit (blood only) 32.3 % (37-47); Hemoglobin 10.4 g/dL (12.0-16.0); Immature Granulocytes # (auto) 0.05 K/uL (0.00-0.02); Immature Granulocytes % (auto) 0.3 %; Lymphocytes # (auto) 1.64 K/uL (1.2-3.4); Lymphocytes % (auto) 9.6 %; Mean Corpuscular Hemoglobin 28.7 pg (25-34); Mean Corpuscular Hgb Conc 32.2 g/dL (32-36); Mean Corpuscular Volume 89.2 fL (80-100); Mean Platelet Volume 9.9 fL (7.4-10.4); Monocytes # (auto) 1.13 K/uL (0.11-0.59); Monocytes % (auto) 6.6 %; Neutrophils # (auto) 14.29 K/uL (1.4-6.5); Neutrophils % (auto) 83.3 %; Platelet Count 347 K/uL (130-400); RDW Coefficient of Variation 13.5 % (11.5-14.5); RDW Standard Deviation 44.2 fL (36.4-46.3); Red Blood Count 3.62 M/uL (4.2-5.4); White Blood Count 17.14 K/uL (4.8-10.8)
[2020-05-01] MEDS ORDERED: LACTATED RINGER'S 500 ML IV ONE (07:20)
--- NOTE | 2020-05-01 07:33 | Obstetrical Progress Note ---
Date of Service May 01, 2020 Assessment & Plan (1) state: cont current care Physical Exam Constitutional WD/WN, vitals as above Respiratory normal respiratory effort, lungs clear to auscultation Cardiovascular RRR, no murmur, no edema Gastrointestinal (Abdomen) normal bowel sounds, soft, nontender, no hepatosplenomegaly (Incision CDI ) Results & Data ([facility]) Vital Signs (Past 12 Hours) Vital Signs Temp Pulse Pulse Resp BP BP Pulse Ox 05/01/20 06:25 16 94 05/01/20 05:45 16 96 05/01/20 04:45 97.9 F 97 H 20 118/75 96 05/01/20 03:18 16 95 05/01/20 02:00 18 97 05/01/20 01:15 20 97 05/01/20 00:00 18 96 04/30/20 23:05 99.1 F 93 H 18 112/68 96 04/30/20 22:00 18 97 04/30/20 21:45 99.0 F 94 H 20 107/70 95 04/30/20 21:13 98 H 107/61 96 04/30/20 21:08 92 H 95 04/30/20 21:03 107 H 116/64 94 04/30/20 20:58 110 H 93 04/30/20 20:53 98.2 F 98 H 20 111/77 97 04/30/20 20:48 93 H 96 04/30/20 20:43 91 H 111/77 96 04/30/20 20:38 88 96 04/30/20 20:33 97 H 105/78 97 04/30/20 20:28 95 H 96 04/30/20 20:25 98.2 F 93 H 20 104/67 04/30/20 20:23 97 H 96 04/30/20 20:18 99 H 96 04/30/20 20:13 91 H 98 04/30/20 20:08 106 H 98 04/30/20 20:03 85 109/67 97 04/30/20 19:58 105 H 99 04/30/20 19:56 82 100/64 04/30/20 19:55 88 164/129 H 04/30/20 19:53 91 H 86/51 L 100 04/30/20 19:48 76 97 04/30/20 19:43 90 12 100/57 L 96 04/30/20 19:38 76 95 04/30/20 19:34 16 L 106/57 L 04/30/20 19:33 81 86/58 L 98
[2020-05-01] MEDS: SIMETHICONE 80 MG CHEW PO SCH ×4 (07:35→21:28)
[2020-05-01] MEDS: DOCUSATE SODIUM 100 MG CAP PO SCH ×2 (07:35→21:29)
[2020-05-01] MEDS: KETOROLAC 30 MG/ML VIAL IV PRN (07:35)
[2020-05-01] MEDS: FERROUS SULFATE 325 MG TAB PO SCH (07:35)
[2020-05-01] MEDS: PRENATAL VITAMIN 1 TAB PO SCH (07:35)
[2020-05-01] MEDS ORDERED: NON-FORMULARY MEDICATION (Prenat.Vits,Cal,Min-Iron-Folic 1 TAB) PO SCH (09:00)
[2020-05-01] MEDS ORDERED: PROMETHAZINE HCL 25 MG in SODIUM CHLORIDE 0.9% 50 ML IV PRN (13:06)
[2020-05-01] MEDS ORDERED: ONDANSETRON INJ 2 MG/ML 2 ML VIAL IV PRN (13:06)
[2020-05-01] MEDS ORDERED: MEPERIDINE HCL 50 MG/ML CARP IV PRN (13:06)
[2020-05-01] MEDS ORDERED: ZOLPIDEM TARTRATE 5 MG TAB PO PRN (13:06)
[2020-05-01] MEDS ORDERED: DiphenhydrAMINE HCL 50 MG/ML VIAL IV PRN (13:06)
[2020-05-01] MEDS ORDERED: KETOROLAC 30 MG/ML VIAL IV PRN (13:06)
[2020-05-01] MEDS: OXYCODONE/ACETAMINOPHEN 5mg/325mg TAB PO PRN ×2 (14:19→21:28)
[2020-05-01] MEDS: IBUPROFEN 600 MG TAB PO PRN ×2 (14:19→21:29)
[2020-05-01] MEDS ORDERED: bisacodyL 5 MG TABEC PO SCH (20:00)
[2020-05-02] MEDS: IBUPROFEN 600 MG TAB PO PRN ×3 (04:05→12:44)
[2020-05-02] MEDS: OXYCODONE/ACETAMINOPHEN 5mg/325mg TAB PO PRN ×3 (04:05→12:43)
[2020-05-02] MEDS ORDERED: bisacodyL 10 MG SUPP PR PRN (06:00)
[2020-05-02 07:12] LABS: Hematocrit (blood only) 30.7 % (37-47); Hemoglobin 10.4 g/dL (12.0-16.0)
[2020-05-02] MEDS: PRENATAL VITAMIN 1 TAB PO SCH (08:51)
[2020-05-02] MEDS: DOCUSATE SODIUM 100 MG CAP PO SCH (08:52)
[2020-05-02] MEDS: SIMETHICONE 80 MG CHEW PO SCH ×2 (08:52→12:29)
[2020-05-02] MEDS: FERROUS SULFATE 325 MG TAB PO SCH (08:52)
--- NOTE | 2020-05-02 08:56 | Obstetrical Progress Note ---
Date of Service May 02, 2020 Assessment & Plan (1) state: s/p with appropriate post-op progress patietn wishes to be discharged scripts sent to listed pharmacy follow up in 6 weeks Day #:: 2 Subjective Ambulation: ambulating normally Voiding: no voiding problems Passing Gas:: Yes Diet Tolerance:: regular diet Lochia:: Moderate Feeding Type:: breast feeding pain meds working well. Review of Systems All systems reviewed & are unremarkable except as noted in HPI & below Physical Exam Constitutional WD/WN, vitals as above Gastrointestinal (Abdomen) Inspection/Auscultation: + abdominal surgical incision (dry, intact, no erythema) Psychiatric A+Ox3, euthymic affect Genitourinary OB Exam Abdomen: + fundal height (2 below) Fundus: + firm Results & Data ([facility]) Vital Signs (Past 12 Hours) Vital Signs Temp Pulse Resp BP Pulse Ox 05/01/20 23:00 98.6 F 92 H 18 114/75 96
--- NOTE | 2020-05-03 13:45 | Discharge Summary ---
Date of Service May 03, 2020 Admission Exam (Per Admitting) Constitutional WD/WN, vitals as above Respiratory normal respiratory effort, lungs clear to auscultation Cardiovascular RRR, no murmur, no edema Gastrointestinal (Abdomen) normal bowel sounds, soft, nontender, no hepatosplenomegaly (Incision CDI ) Discharge Data Consultations 04/30/20 08:01 Consult Anesthesiology Stat Procedures Performed Operation Date: 04/30/20 17:45 Actual Procedures p Section in LD - [place]. Zafar [place] [facility] [place] (1) state: s/p with appropriate post-op progress patietn wishes to be discharged scripts sent to listed pharmacy follow up in 6 weeks Coding Level of Care Code None Diagnoses state Z39.2
== END 2020-05-02 13:15 | disposition home or self-care (01) | DRG 788 ==
LOC: 4S1 07:44 → 4S2 21:34

== ENCOUNTER 2022-05-29 05:29 | Inpatient (IN) ==
--- NOTE | 2022-05-22 09:49 | Anesthesiology Consultation ---
Date of Service May 22, 2022 Assessment & Plan (1) Encounter for pre-operative examination: Chart Review Chart Review: tip puncher initiated Per nursing assessment 05/22/2022, patient denies any recent travel. No known COVID infection in the past 90 days. Patient is not vaccinated for COVID. No known Covid positive exposures or Covid related symptoms. Preop Covid testing scheduled 05/26/22= will await results Patient seen by cardiology 03/27/2022 = Patient referred for evaluation of tachycardia. Could be multifactorial in origin. Could be just related to . However baseline history of low BPthus cannot exclude autonomic dysfunction. With recent history of COVID-19underlying autonomic dysfunction could be exacerbated or COVID-19 could be because of autonomic dysfunction even if not previously existing. Patient euvolemic. Stays well-hydrated. Labs did show anemiaanemia could be because of increased heart rate. Holter monitor revealed sinus rhythm with only very rare premature supraventricular beats. Chronic low BPno significant orthostatic changes. Advised to increase dietary sodium intakewe will monitor for signs of fluid retention. Will defer to OB to continue to monitor hemoglobin and hematocrit. Will order ECHO to exclude underlying structural heart disease. Follow up in three months ( will be completed at this time). D&C 06/24/21= Done under [place] with Grade 1 view with Brown #2. ETT #7.0. Atraumatic. DL x 1. Primary 04/30/20 (due to macrosomia)= Epidural bolused for procedure. History Surgery Operation Date: 05/29/22 07:30 Proposed Procedures p Section (Delivery of Baby through Abdominal Incision) - Shabana Acosta MD Height/Weight Height: 5 ft 2 in Weight: 64.41 kg Allergies Allergy/AdvReac Type Severity Reaction Status Date / Time No Known Allergies Allergy Verified 05/22/22 08:34 Medications Home Medications Medication Instructions Recorded Confirmed Last Taken vit no.133-ferrous 1 tab PO HS 06/23/21 05/22/22 11/10/21 fumarate 28 mg-folic acid 800 mcg tablet () ferrous sulfate 325 mg (65 mg 325 mg PO HS 05/22/22 05/22/22 Unknown iron) tablet Past Medical History Medical History Anorexia Anxiety History of COVID-19 Diagnosed 05/29/21 @ [facility] in [place]--fever, loss of taste/smell--no issues now October 2021 at [facility]. Asymptomatic, treated at ER for tachycardia Nausea and vomiting after administration of anesthetic agent Hx of scope patch used during D&E in 06/2021. Tachycardia - Seen by Dr. Pfeiffer 03/2022- feels multifactorial- possibly related to but has baseline hx of low BP- cannot exclude component of autonomic dysfunction. Recent labs also showed anemia. Holter monitor showed only SR and only very rare supraventricular beats. Possible cardiac sequelae to Covid 19 infection - ECHO ordered - Patient reports she was placed on iron supplement and it has improved the symptoms. Past Family History Family History Father No problems noted. Grandmother (Maternal) Dyslipidemia Breast cancer great grandmother Mother Clotting disorder Gestational diabetes Connective tissue disease Hypertension Fibromuscular dysplasia Grandfather (Maternal) Prostate cancer Hypercholesteremia Other No family history of adverse response to anesthesia Denies family history of Ovarian cancer Colorectal cancer Past Surgical History Surgical History H/O LEEP History of ankle surgery ORIF left ankle--hardware removed History of section History of colposcopy History of dilatation and curettage (~06/2021) D&E [place] teeth removed Social History Smoking Status: Never smoker Do You Dip or Chew Tobacco: No Hx Alcohol Use: No Hx Substance Use: No substance use type: does not use Testing Laboratory Results 04/28/22= Hgb: 10.2 (increased from 9.6 on 03/22/22) 03/27/22 (will be 63 days old by day of ) = SODIUM: 136 POTASSIUM: 3.9 CHLORIDE: 102 CO2: 26 BUN: 7 CREATININE: 0.44 GLUCOSE: 92 Electrocardiogram Date: 03/27/22 Findings: + NSR @ (90bpm ) Normal EKG per cardio. Echocardiogram Date: 05/01/22 EF: 50-55% LV Function: normal RWMA: + none Other Findings: no LVH or no diastolic dysfunction Valvular Disease: + no significant valvular disease Normal transthoracic ECHO.
--- NOTE | 2022-05-26 09:18 | History & Physical Report ---
Date of Service May 26, 2022 Assessment & Plan (1) Encounter for pre-operative examination: (2) Previous section complicating : Plan 27 yo presents for preop for planned CS, declines tubal -Discussed indications, risks, benefits, alternatives with risks including infection, bleeding, injury to adjacent structures (bowel, bladder, ureters, blood vessels, nerves, baby), possible need for blood transfusion and/or life saving hysterectomy, VTE. Consent reviewed in detail w/ pt and signed after all questions answered to her satisfaction. History of Present Illness Chief Complaint: preop Primary Care Provider: Zabrina Donnelly PA-C 27 yo at 38 6/7 wga presents for preop for planned CS mon at 39 2/7 wga. 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: G1 2019 pLTCS G2 2020 SAB G3 current 10/2021 ascus/hpv-, hx LEEP denies hx STIs Allergies Allergy/AdvReac Type Severity Reaction Status Date / Time No Known Allergies Allergy Verified 05/26/22 09:03 Home Medications Medication Instructions Recorded Confirmed Type vit no.133-ferrous 1 tab PO HS 06/23/21 05/26/22 History fumarate 28 mg-folic acid 800 mcg tablet () ferrous sulfate 325 mg (65 mg 325 mg PO HS 05/22/22 05/26/22 History iron) tablet Patient History Medical History Anorexia Anxiety History of COVID-19 Diagnosed 05/29/21 @ [facility] in [place]--fever, loss of taste/smell--no issues now October 2021 at [facility]. Asymptomatic, treated at ER for tachycardia Nausea and vomiting after administration of anesthetic agent Hx of scope patch used during D&E in 06/2021. Tachycardia - Seen by Dr. Pfeiffer 03/2022- feels multifactorial- possibly related to but has baseline hx of low BP- cannot exclude component of autonomic dysfunction. Recent labs also showed anemia. Holter monitor showed only SR and only very rare supraventricular beats. Possible cardiac sequelae to Covid 19 infection - ECHO ordered - Patient reports she was placed on iron supplement and it has improved the symptoms. Surgical History H/O LEEP History of ankle surgery ORIF left ankle--hardware removed History of section History of colposcopy History of dilatation and curettage (~06/2021) D&E [place] teeth removed Family History Father No problems noted. Grandmother (Maternal) Dyslipidemia Breast cancer great grandmother Mother Clotting disorder Gestational diabetes Connective tissue disease Hypertension Fibromuscular dysplasia Grandfather (Maternal) Prostate cancer Hypercholesteremia Other No family history of adverse response to anesthesia Denies family history of Ovarian cancer Colorectal cancer Social History Smoking Status: Never smoker Second Hand Exposure: No; Hx Alcohol Use: No Hx Substance Use: No Preferred Language: Upper Sorbian Communication Ability: Effective Visual Impairment: No Limitations Hearing Ability: Normal Yarn Packer Required: No Beliefs That Will Affect Care: None marital status: marital status details: Gallo Person (31) [phone] Current Living Situation: Spouse and Family Current Living Situation Comment: lives with spouse and son, 3 dogs, 2 cat, changing litter current occupational status: employed 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 Feels Safe at Home: Yes Assistive Devices: Contacts and Glasses Physical Exam Respiratory: normal respiratory effort, lungs clear to auscultation Cardiovascular: RRR, no murmur, no edema Genitourinary: OB Exam Abdomen: + fundal height (38) and + heart tones (140s) Results & Data ([facility]) Laboratory Results OB Labs: Blood Type O Positive 11/08/21 Antibody Screen NEGATIVE 11/08/21 Hemoglobin 10.2 g/dl (12.0-16.0) L 04/28/22 Hematocrit 28.2 % (37-47) L 03/22/22 Mean Corpuscular Volume 84.1 fL (80-100) 11/11/21 Platelet Count 322 K/uL (130-400) 11/11/21 Rubella IgG Antibody Immune (Immune) 11/08/21 Rapid Plasma Reagin Nonreactive (Nonreactive) 11/08/21 Hepatitis B Surface Antigen Neg (Neg) 11/08/21 Hepatitis C Antibody Neg (Neg) 11/08/21 HIV (1&2) Ab and P24 Ag, 4th Gener Neg (Neg) 11/08/21 Glucose 1 Hour 50 gm Load 111 mg/dl (70-130) 03/22/22 Maternal Serum Alpha Fetoprotein 37.6 ng/mL 12/21/21 OB Optional Labs: Chlamydia trachomatis RNA NOT DETECTED (NOT DETECTED) 10/28/21 Neisseria gonorrhoeae RNA NOT DETECTED (NOT DETECTED) 10/28/21 Thyroid Stimulating Hormone (TSH) 1.474 uIu/ml (0.300-4.500) 01/19/22 Alpha Fetoprotein Triple Screen SEE NOTE 12/21/21 Labs Reviewed: (-)CF/SMA 2019 low risk cfdna - sln GBS neg Diagnostic Findings Posterior fundal plac Coding Level of Care Code None Diagnoses Encounter for pre-operative examination Z01.818 Previous section complicating O34.219
[2022-05-29] MEDS ORDERED: ceFAZolin 2,000 MG in SYRINGE 0 ML IV SCH (06:00)
[2022-05-29] MEDS ORDERED: CITRIC ACID/SODIUM CITRATE 15 ML UDC PO SCH (06:00)
[2022-05-29] MEDS ORDERED: LACTATED RINGER'S 1,000 ML IV SCH (06:00)
[2022-05-29 06:10] LABS: Basophils # (auto) 0.04 K/uL (0-0.2); Basophils % (auto) 0.5 %; Eosinophils # (auto) 0.03 K/uL (0-0.50); Eosinophils % (auto) 0.4 %; Hematocrit (blood only) 31.1 % (34.1-44.9); Hemoglobin 9.8 g/dl (12.0-16.0); Immature Granulocytes # (auto) 0.07 K/uL (0.00-0.02); Immature Granulocytes % (auto) 0.9 %; Lymphocytes # (auto) 0.96 K/uL (1.2-3.4); Lymphocytes % (auto) 12.4 %; Mean Corpuscular Hemoglobin 25.9 pg (25.0-34.0); Mean Corpuscular Hgb Conc 31.5 g/dL (32.0-36.0); Mean Corpuscular Volume 82.1 fL (80.0-100.0); Mean Platelet Volume 9.8 fL (9.4-12.3); Monocytes % (auto) 7.7 %; Neutrophils # (auto) 6.07 K/uL (1.4-6.5); Neutrophils % (auto) 78.1 %; Platelet Count 308 K/uL (130-400); RDW Coefficient of Variation 14.6 % (11.5-14.5); Red Blood Count 3.79 M/uL (3.93-5.22); White Blood Count 7.77 K/ul (4.8-10.8)
--- NOTE | 2022-05-29 07:28 | History & Physical Bridge Note ---
Date of Service May 29, 2022 History & Physical Bridge Note I have examined the patient, reviewed the History & Physical and in the interval since the performance of the History & Physical I have noted the following changes of clinical significance: Pt notes a rash developed prior to use of chlorhexidine wipes. Rash is not itchy, mild but diffuse across abdomen, appears primarily upper. Did take benadryl last night. I think ok to use wipes as it was not affected by it last night, will see what it looks like after CS.
[2022-05-29] MEDS ORDERED: ONDANSETRON INJ 2 MG/ML 2 ML VIAL ONE (07:51)
[2022-05-29] MEDS ORDERED: MoRPHine SULFATE PF 1 MG/ML 10 ML AMP/VIAL ONE (07:51)
[2022-05-29] MEDS ORDERED: OXYTOCIN 10 UNITS/ML 10ML VIAL ONE (09:00)
[2022-05-29] MEDS ORDERED: KETOROLAC 30 MG/ML VIAL ONE (09:00)
[2022-05-29] MEDS ORDERED: PHENYLEPHRINE 100MCG/ML 5ML SYR ONE (09:00)
[2022-05-29] MEDS ORDERED: ePHEDrine sulfate 50 MG/ML SYR ONE (09:00)
[2022-05-29] MEDS ORDERED: diphenhydrAMINE 50 MG/ML VIAL IV PRN ×2 (09:06→09:19)
[2022-05-29] MEDS ORDERED: MAGNESIUM HYDROXIDE SUSP 30 ML UDC PO PRN (09:06)
[2022-05-29] MEDS ORDERED: DIPHTHERIA/TETANUS/PERTUSSIS 0.5 ML SYR/VIAL IM ONE (09:06)
[2022-05-29] MEDS ORDERED: PROMETHAZINE HCL 25 MG in SODIUM CHLORIDE 0.9% 50 ML IV PRN ×2 (09:06→09:19)
[2022-05-29] MEDS ORDERED: diphenhydrAMINE Capsule 25 MG CAP PO PRN (09:06)
[2022-05-29] MEDS ORDERED: HYDROCORTISONE ACETATE 25 MG SUPP PR PRN (09:06)
[2022-05-29] MEDS ORDERED: SENNA 8.6 MG TAB PO PRN (09:06)
[2022-05-29] MEDS ORDERED: ONDANSETRON INJ 2 MG/ML 2 ML VIAL IV PRN ×2 (09:06→09:19)
[2022-05-29] MEDS ORDERED: KETOROLAC 30 MG/ML VIAL IV PRN ×2 (09:06→09:19)
[2022-05-29] MEDS ORDERED: BENZOCAINE 20% AER SPR 82.5 GM CAN EXT PRN (09:06)
--- NOTE | 2022-05-29 09:12 | Operative Report ---
PG Post Operative Report Pre & Post Diagnosis Operation Date: 05/29/22 07:30 Pre-Op Diagnosis: Single intrauterine at 39 2/7 weeks. History of section x1. Desires repeat section. Post-Op Diagnosis: Single intrauterine at 39 2/7weeks. History of section x1. Desires repeat section. I identified the patient and participated in the time-out.: Yes Procedure Operation Date: 05/29/22 07:30 Actual Procedures p Repeat Low Transverse Section (Delivery of Baby through Abdominal Incision) delivery of live female child at 0828(Bilateral) - Shabana Acosta MD Surgeon Shabana Acosta MD Textile Broker MD Chuck Estimated Blood Loss 500 Findings Consistent with Post-Op Diagnosis Thin lower uterine segment that was reinforced during hysterotomy repair. Otherwise normal appearing uterus, bilateral fallopian tubes and ovaries. Mild rectus adhesions. Viable female with APGARs of 9 and 9 Fluids 1L Crystalloid, 150cc UOP by franco catheter Specimens Cord blood Drains Franco Anesthesia Type Spinal Complications none Disposition Accompanied Patient To Recovery: Yes Disposition: L&D Indications 27 y/o at 39 2/7 wga presents for planned elective repeat CS. Consent previously reviewed in depth and signed after all questions answered to apparent satisfaction Description of Procedure The patient was taken to the operating room after consents were ensured. The patient was properly identified. Spinal anesthesia was obtained without difficulty. The patient was placed in a dorsal supine position with left lateral tilt, then prepped and draped in normal sterile fashion. Surgical time out was performed. Antibiotics were given for prophylaxis. Anesthesia was tested to ensure adequate surgical levels. Pfannenstiel skin incision was performed and carried down to the underlying fascia with a knife. The fascia was then nicked in the midline and extended laterally with pickups and Osman scissors. Superior portion of the fascia was grasped with Kochers x2 and elevated off the underlying rectus muscles using blunt dissection. Inferior portion of the fascia was then grasped with Juan Francisco clamps x2 and also elevated off the underlying muscles with blunt dissection. Midline was identified and rectus adhesions were taken down sharply. The peritoneum was then entered bluntly and extended to provide adequate room for delivery of baby. The hand was inserted into the abdomen, uterus was noted to be clear of adhesions. Bladder blade was inserted, bladder flap was created in the usual fashion. A low transverse uterine incision was made in the uterus and extended bluntly in a superior to inferior fashion. Amniotomy was made with clear fluid at the time of rupture. head was grasped and elevated through the hysterotomy in an atraumatic fashion. The baby delivered in DANIELA position, no nuchal cord. Remainder of the body delivered without incident. Nose and mouth were bulb suctioned on the surgical field. The cord was double clamped and cut, baby was handed off to awaiting pediatrics staff. Cord segment and blood were obtained. Placenta was then expressed from the uterus. The uterus was exteriorized. Several passes were made inside the uterus to remove the remaining membranes. Attention was then turned to the hysterotomy, which was then closed with a running locked suture of 0 Vicryl on a CTX needle. The lower uterine segment was noted to be thin and easily torn through with placement of suture. An imbricating layer was then performed using 0-Monocryl and the lower uterine segment reinforced. There was noted to be good hemostasis. The posterior cul-de-sac was then inspected and cleaned of clot and debris. The hysterotomy was again inspected and noted to be hemostatic. The uterus was returned to the abdomen. The right and left pericolic gutters were cleaned of all clot and debris. The hysterotomy was again noted to be hemostatic. Space of Retzius was noted to be hemostatic. Rectus muscles were re-approximated using 2-0 plain gut in an interrupted fashion. The fascia was then closed with a running suture of 0 Vicryl on a CT1 needle. Subcutaneous tissue was copiously irrigated and noted to be hemostatic. Subcutaneous tissue was re-approximated using 2-0 plain gut. The skin was then closed with a running suture of 3-0 Monocryl in a subcuticular fashion. At termination of the procedure, fundal pressure was applied and a moderate amount of lochia was expressed. Pressure dressing was applied to the patient. She tolerated the procedure well. All sponge, needle, instrument counts were correct x 2. I attest to the content of the Intraoperative Record and any orders documented therein. Any exceptions are noted below. OB Procedure Charges 69256
--- NOTE | 2022-05-29 09:12 | Post Operative Brief Note ---
PG Immediate Post Op with CF Date of Surgery May 29, 2022 Pre & Post Diagnosis Operation Date: 05/29/22 07:30 Pre-Op Diagnosis: Single intrauterine at 39 2/7 weeks. History of section x1. Desires repeat section. Post-Op Diagnosis: Single intrauterine at 39 2/7 weeks. History of section x1. Desires repeat section. I identified the patient and participated in the time-out.: Yes Procedure Operation Date: 05/29/22 07:30 Actual Procedures p Repeat Low Transverse Section (Delivery of Baby through Abdominal Incision) delivery of live female child at 0828(Bilateral) - Shabana Acosta MD Surgeon Shabana Acosta MD Big Data Developer MD Chuck Estimated Blood Loss 500 Findings Consistent with Post-Op Diagnosis Thin lower uterine segment that was reinforced during hysterotomy repair. Otherwise normal appearing uterus, bilateral fallopian tubes and ovaries. Mild rectus adhesions. Viable female with APGARs of 9 and 9 Specimens Specimen Description: A: placenta hold B: cord blood Drains Jamison Catheter (draining clear yellow urine) Anesthesia Type Spinal Complications none Disposition Accompanied Patient To Recovery: Yes Disposition: L&D
[2022-05-29] MEDS ORDERED: OXYTOCIN 20 UNITS in LACTATED RINGER'S 1,000 ML IV SCH (09:15)
[2022-05-29] MEDS ORDERED: NALOXONE HCL 0.4 MG/1 ML VIAL/CARP IV PRN (09:19)
[2022-05-29] MEDS ORDERED: HYDROmorphone INJ 0.5 MG/0.5 ML SYR IV PRN (09:19)
[2022-05-29] MEDS ORDERED: MoRPHine SULFATE PF 1 MG/ML 10 ML AMP/VIAL INT SPINAL ONE (09:19)
[2022-05-29] MEDS ORDERED: MoRPHine SULFATE 2 MG/ML CARP IV PRN (09:19)
[2022-05-29] MEDS ORDERED: NALOXONE HCL 1 MG in SODIUM CHLORIDE 0.9% 1000ML 1,000 ML IV PRN (09:19)
[2022-05-29] MEDS ORDERED: MEPERIDINE HCL 25 MG/ML CARP/VIAL IV PRN (09:19)
[2022-05-29] MEDS ORDERED: ePHEDrine sulfate 50 MG/ML AMP IV PRN (09:19)
[2022-05-29] MEDS ORDERED: NALBUPHINE HCL INJ 10 MG/ML AMP IV PRN (09:19)
[2022-05-29] MEDS ORDERED: NALOXONE HCL 0.08 MG in SYRINGE 1.8 ML IV PRN (09:19)
[2022-05-29] MEDS ORDERED: LACTATED RINGER'S 500 ML IV PRN (09:19)
--- NOTE | 2022-05-29 09:19 | Anesthesiology Consultation ---
Date of Service May 29, 2022 Assessment & Plan Chart Review Chart Review: Patient NOT seen in Pre Admission Testing and Acceptable Risk for Labor Epidural Consults Requested none ASA ASA2 Proposed Anesthesia Anesthesia Type: Spinal (intraspinal morphine) Risk / Benefits Reviewed With: PT / POA / Parent / Guardian, Accepts Plan and Informed Consent Obtained History Surgery Operation Date: 05/29/22 07:30 Proposed Procedures p Section (Delivery of Baby through Abdominal Incision) - Shabana Acosta MD Height/Weight Height: 5 ft 2 in Weight: 64.41 kg Allergies Allergy/AdvReac Type Severity Reaction Status Date / Time No Known Allergies Allergy Verified 05/26/22 09:03 Medications Home Medications Medication Instructions Recorded Confirmed Last Taken vit no.133-ferrous 1 tab PO HS 06/23/21 05/28/22 05/27/22 fumarate 28 mg-folic acid 800 mcg tablet () ferrous sulfate 325 mg (65 mg 325 mg PO HS 05/22/22 05/28/22 05/27/22 iron) tablet famotidine 20 mg tablet (Pepcid) 20 mg PO DAILY 05/28/22 05/29/22 05/29/22 Active Medications Generic Name Dose Route Start Last Admin Trade Name Freq PRN Reason Stop Dose Admin Cefazolin Sodium 2,000 mg/ 15 mls @ 3.75 mls/min 05/29/22 06:00 05/29/22 07:54 Syringe IV 05/29/22 14:00 3.75 mls/min PREOP JESUS Administration NPO Date Last Intake of Fluids: 05/28/22 Time Last Intake of Fluids: 21:00 Date Last Intake of Solids: 05/28/22 Time Last Intake of Solids: 18:00 Past Medical History Medical History Anorexia Anxiety History of COVID-19 Diagnosed 05/29/21 @ [facility] in [place]--fever, loss of taste/smell--no issues now October 2021 at [facility]. Asymptomatic, treated at ER for tachycardia Nausea and vomiting after administration of anesthetic agent Hx of scope patch used during D&E in 06/2021. Tachycardia - Seen by Dr. Pfeiffer 03/2022- feels multifactorial- possibly related to but has baseline hx of low BP- cannot exclude component of autonomic dysfunction. Recent labs also showed anemia. Holter monitor showed only SR and only very rare supraventricular beats. Possible cardiac sequelae to Covid 19 infection - ECHO ordered - Patient reports she was placed on iron supplement and it has improved the symptoms. Exercise / Class Metabolic Activity II 4-5 Yardwork/Stairs/Walk up hill Past Family History Family History Father No problems noted. Grandmother (Maternal) Dyslipidemia Breast cancer great grandmother Mother Clotting disorder Gestational diabetes Connective tissue disease Hypertension Fibromuscular dysplasia Grandfather (Maternal) Prostate cancer Hypercholesteremia Other No family history of adverse response to anesthesia Denies family history of Ovarian cancer Colorectal cancer Past Surgical History Surgical History H/O LEEP History of ankle surgery ORIF left ankle--hardware removed History of section History of colposcopy History of dilatation and curettage (~06/2021) D&E [place] teeth removed Past Anesthesia History No Hx of Anesthesia Complications and No Family Hx of Anesthesia Complications History of PONV No Hx of PONV and No Hx of Motion Sickness Social History Smoking Status: Never smoker Do You Dip or Chew Tobacco: No Hx Alcohol Use: No Hx Substance Use: No substance use type: does not use Physical Exam Vital Signs Last Vital Signs Temp 36.8 C 05/29/22 07:03 Pulse 100 H 05/29/22 09:16 Resp 18 05/29/22 07:03 BP 118/58 L 05/29/22 09:14 Pulse Ox 95 05/29/22 09:16 ENMT Mouth: no dentition abnormality Thyromental Distance: > or= 3.5 Finger Breadths Mallampati Class: II Neck normal visual inspection Respiratory normal respiratory effort Auscultation: lungs clear to auscultation bilaterally Cardiovascular Rate/Rhythm: regular rate and regular rhythm Psychiatric Orientation: alert Testing Laboratory Results 05/29/22 05:53 Blood Type O Positive 05/29/22 05:53 Antibody Screen NEGATIVE 05/29/22 05:53
[2022-05-29] MEDS ORDERED: SODIUM CHLORIDE 0.9% 1000ML 1,000 ML IV SCH (09:30)
[2022-05-29] MEDS ORDERED: DC INTRASPINAL MORPHINE SCH (09:30)
[2022-05-29] MEDS ORDERED: NO NARCOTICS OR SEDATIVES SCH (09:30)
[2022-05-29] MEDS ORDERED: METOCLOPRAMIDE HCL INJ 5 MG/ML 2 ML VIAL IV ONE (10:26)
--- NOTE | 2022-05-29 14:02 | Anesthesiology Progress Note ---
Date of Service May 29, 2022 Anesthesia Post Procedure Vital Signs Vital Signs: Temp Pulse Pulse Resp BP BP Pulse Ox 05/29/22 12:45 36.4 C L 125 H 18 106/64 97 05/29/22 11:45 18 98 05/29/22 11:45 36.3 C L 80 18 103/66 98 05/29/22 11:45 05/29/22 11:20 36.4 C L 18 05/29/22 10:50 18 05/29/22 10:20 18 05/29/22 10:10 18 05/29/22 10:00 18 05/29/22 09:50 18 05/29/22 09:40 18 05/29/22 09:30 18 05/29/22 09:20 36.4 C L 20 05/29/22 05:56 36.7 C 114 H 18 119/72 05/29/22 11:31 82 95 05/29/22 11:26 81 96 05/29/22 11:21 77 97 05/29/22 11:16 80 95 05/29/22 11:11 93 05/29/22 11:11 81 05/29/22 11:11 85 95 05/29/22 11:06 94 H 98 05/29/22 11:03 80 108/66 05/29/22 11:01 84 97 05/29/22 10:56 94 H 96 05/29/22 10:51 94 H 97 05/29/22 10:46 104 H 97 05/29/22 10:41 89 97 05/29/22 10:36 77 97 05/29/22 10:33 85 105/59 L 05/29/22 10:31 89 95 05/29/22 10:26 103 H 98 05/29/22 10:22 93 H 108/67 05/29/22 10:21 77 97 05/29/22 10:16 90 98 05/29/22 10:12 75 114/57 L 05/29/22 10:11 88 98 05/29/22 10:06 89 96 05/29/22 10:03 93 H 115/56 L 05/29/22 10:01 102 H 98 05/29/22 09:56 85 97 05/29/22 09:54 261/153 H 05/29/22 09:51 89 96 05/29/22 09:46 99 H 96 05/29/22 09:41 72 97 05/29/22 09:36 86 95 05/29/22 09:34 103 H 144/63 H 05/29/22 09:31 112 H 98 05/29/22 09:26 94 05/29/22 09:26 80 05/29/22 09:26 76 95 05/29/22 09:23 101 H 99/66 L 05/29/22 09:21 92 H 97 05/29/22 09:16 100 H 95 05/29/22 09:14 113 H 118/58 L 05/29/22 07:03 18 05/29/22 07:03 36.8 C 18 05/29/22 07:04 110 H 112/79 05/29/22 05:46 114 H 119/72 Pulse Ox O2 Del Method O2 Del Method 05/29/22 12:45 Room Air 05/29/22 11:45 05/29/22 11:45 Room Air 05/29/22 11:45 98 Room Air 05/29/22 11:20 05/29/22 10:50 05/29/22 10:20 05/29/22 10:10 05/29/22 10:00 05/29/22 09:50 05/29/22 09:40 05/29/22 09:30 05/29/22 09:20 05/29/22 05:56 05/29/22 11:31 05/29/22 11:26 05/29/22 11:21 05/29/22 11:16 05/29/22 11:11 05/29/22 11:11 05/29/22 11:11 05/29/22 11:06 05/29/22 11:03 05/29/22 11:01 05/29/22 10:56 05/29/22 10:51 05/29/22 10:46 05/29/22 10:41 05/29/22 10:36 05/29/22 10:33 05/29/22 10:31 05/29/22 10:26 05/29/22 10:22 05/29/22 10:21 05/29/22 10:16 05/29/22 10:12 05/29/22 10:11 05/29/22 10:06 05/29/22 10:03 05/29/22 10:01 05/29/22 09:56 05/29/22 09:54 05/29/22 09:51 05/29/22 09:46 05/29/22 09:41 05/29/22 09:36 05/29/22 09:34 05/29/22 09:31 05/29/22 09:26 05/29/22 09:26 05/29/22 09:26 05/29/22 09:23 05/29/22 09:21 05/29/22 09:16 05/29/22 09:14 05/29/22 07:03 05/29/22 07:03 05/29/22 07:04 05/29/22 05:46 Transfer of Care Handoff Completed per policy Notes Mental Status: alert / awake / arousable Nausea / Vomiting: adequately controlled Pain: adequately controlled Airway Patency, RR, SpO2: stable & adequate BP & HR: stable & adequate Hydration State: stable & adequate Neuraxial Anesthesia: was administered and sensory block is resolving Anesthetic Complications: no major complications apparent and Pt Satisfied with anesthetic care
[2022-05-29] MEDS: SIMETHICONE 80 MG CHEW PO SCH ×3 (15:16→21:08)
[2022-05-29] MEDS ORDERED: LACTATED RINGER'S 500 ML IV ONE (16:43)
[2022-05-29] MEDS: LACTATED RINGER'S 1,000 ML IV SCH ×2 (17:42→21:07)
[2022-05-29] MEDS: HYDROCORTISONE 1% CRM 30 GM TUBE EXT PRN ×2 (19:28→23:58)
[2022-05-29] MEDS: DOCUSATE SODIUM 100 MG CAP PO SCH (21:08)
--- NOTE | 2022-05-30 05:43 | Obstetrical Progress Note ---
Date of Service <Jennifer Tilley DO - Last Filed: 05/30/22 07:35> May 30, 2022 Assessment & Plan <Jennifer Tilley DO - Last Filed: 05/30/22 07:35> (1) Encounter for supervision of normal in multigravida: (2) Previous section complicating : Plan s/p Day 1 -Vital signs reviewed and WNL (Tmax at 36.9) -Hemoglobin reviewed, 9.7 (today) -Blood type: O+, GBS-, Rubella immune -Patient is doing well clinically -Monitor and control pain with motrin PRN, resume regular diet, monitor lochia. Encourage ambulation. -Encourage breast feeding <Shabana Acosta MD - Last Filed: 05/30/22 08:53> (1) Encounter for supervision of normal in multigravida: (2) Previous section complicating : Subjective <Jennifer Tilley DO - Last Filed: 05/30/22 07:35> Carissa is a 27 y/o female who is POD #1 following delivery at 39 2/7 weeks. Patient was seen and examined at bedside. She reports feeling well overall this morning. Denies abdominal cramping but admits to lower back pain this morning at 4/10 pain, states she was just given pain medication. States her franco catheter was just removed this morning. Tolerating meals overnight. States she has only eaten some crackers but denies any nausea. Has not ambulated yet. Has been passing gas and no bowel movements yet. Has some persistent lochia with some improvement this morning. Currently breast feeding but has had some difficulty, has also been supplementing with formula. States she still has the rash on her abdomen that she had prior to admission, states it has been itching but the hydrocortisone cream is helping. Constitutional: no fever, no chills or no sweats Respiratory: no cough, no dyspnea or no wheezing Cardiovascular: no chest pain, no palpitations or no calf pain Breast: no breast pain Genitourinary (female): no dysuria Neurologic: no headache(s) Physical Exam <Jennifer Tilley DO - Last Filed: 05/30/22 07:35> Constitutional WD/WN, vitals as above no acute distress Respiratory no respiratory distress Auscultation: lungs clear to auscultation bilaterally; no rales, no rhonchi and no wheezes Cardiovascular RRR, no murmur, no edema Extremities: no calf tenderness and no edema Negative Terrie's sign bilaterally. Gastrointestinal (Abdomen) Inspection/Auscultation: normal bowel sounds Skin flat, diffuse rash on abdomen. Minimal erythema. Genitourinary Uterine fundus firm, palpable below the umbilicus. Surgical scar is clean and healing well. Results & Data ([facility]) <Jennifer Tilley DO - Last Filed: 05/30/22 07:35> Vital Signs (Past 12 Hours) Vital Signs Temp Pulse Resp BP Pulse Ox O2 Del Method 05/30/22 03:10 16 96 05/30/22 01:29 16 97 05/30/22 00:00 12 98 05/30/22 00:04 36.6 C 98 H 12 98/46 L 95 Room Air 05/29/22 23:00 18 96 05/29/22 22:00 18 93 05/29/22 21:00 18 96 05/29/22 20:00 18 95 05/29/22 19:00 18 95 05/29/22 19:30 36.9 C 99 H 18 107/72 05/29/22 18:30 16 99 <Shabana Acosta MD - Last Filed: 05/30/22 08:53> Co-Signing Physician Notes Resident Physician Supervision Note: I interviewed and examined the patient. Discussed with Dr. Tilley and agree with findings and plan as documented in the note. Any exceptions or clarifications are listed here: POD1 s/p rLTCS, doing well. DTV. Still has slight rash that is itchy, improved with hydrocortisone. Spots are not overly erythematous, flat, not raised at all. Will continue to monitor. Continue routine postop care Documented By: Shabana Acosta MD Resident Activity Tracking <Jennifer Tilley DO - Last Filed: 05/30/22 07:35> Resident Involvement: Resident Care Provided Care Provided: OB Delivery
[2022-05-30] MEDS: IBUPROFEN 600 MG TAB PO PRN ×4 (05:52→20:27)
[2022-05-30] MEDS: oxyCODONE/ACETAMINOPHEN 5mg/325mg TAB PO PRN ×4 (05:53→20:26)
[2022-05-30 06:27] LABS: Basophils # (auto) 0.01 K/uL (0-0.2); Basophils % (auto) 0.1 %; Eosinophils # (auto) 0.01 K/uL (0-0.50); Eosinophils % (auto) 0.1 %; Hematocrit (blood only) 31.3 % (34.1-44.9); Hemoglobin 9.7 g/dl (12.0-16.0); Immature Granulocytes # (auto) 0.04 K/uL (0.00-0.02); Immature Granulocytes % (auto) 0.5 %; Lymphocytes # (auto) 0.72 K/uL (1.2-3.4); Lymphocytes % (auto) 9.1 %; Mean Corpuscular Hemoglobin 25.8 pg (25.0-34.0); Mean Corpuscular Volume 83.2 fL (80.0-100.0); Mean Platelet Volume 9.8 fL (9.4-12.3); Monocytes # (auto) 0.56 K/uL (0.24-0.82); Monocytes % (auto) 7.1 %; Neutrophils # (auto) 6.58 K/uL (1.4-6.5); Neutrophils % (auto) 83.1 %; Platelet Count 278 K/uL (130-400); RDW Coefficient of Variation 14.6 % (11.5-14.5); RDW Standard Deviation 43.8 fL (36.4-46.3); Red Blood Count 3.76 M/uL (3.93-5.22); White Blood Count 7.92 K/ul (4.8-10.8)
[2022-05-30] MEDS: DOCUSATE SODIUM 100 MG CAP PO SCH ×2 (08:40→20:27)
[2022-05-30] MEDS: FERROUS SULFATE 325 MG TAB PO SCH (08:40)
[2022-05-30] MEDS: SIMETHICONE 80 MG CHEW PO SCH ×4 (08:40→20:27)
[2022-05-30] MEDS: PRENATAL VITAMIN 1 TAB PO SCH (08:40)
[2022-05-30] MEDS ORDERED: bisacodyL 5 MG TABEC PO SCH (20:00)
[2022-05-31] MEDS: IBUPROFEN 600 MG TAB PO PRN ×2 (02:04→08:03)
[2022-05-31] MEDS: oxyCODONE/ACETAMINOPHEN 5mg/325mg TAB PO PRN ×3 (02:04→11:05)
[2022-05-31 06:40] LABS: Hematocrit (blood only) 29.3 % (34.1-44.9); Hemoglobin 9.5 g/dl (12.0-16.0)
--- NOTE | 2022-05-31 07:57 | Obstetrical Progress Note ---
Date of Service <Jennifer Tilley DO - Last Filed: 05/31/22 07:56> May 31, 2022 Assessment & Plan <Jennifer Tilley DO - Last Filed: 05/31/22 07:56> (1) Encounter for supervision of normal in multigravida: (2) Previous section complicating : Plan s/p Day 2 -Vital signs reviewed and WNL (Tmax at 36.9) -Hemoglobin reviewed, 9.7 (yesterday) -Blood type: O+, GBS-, Rubella immune -Patient is doing well clinically -Monitor and control pain with motrin PRN, resume regular diet, monitor lochia. Encourage ambulation. -Encourage breast feeding -discussed discharge plan with patient <Noemy Gutierres MD - Last Filed: 05/31/22 07:58> (1) Encounter for supervision of normal in multigravida: (2) Previous section complicating : Subjective <DO Anna Pinon Last Filed: 05/31/22 07:56> Carissa is a 27 y/o female who is POD #2 following delivery at 39 2/7 weeks. Patient was seen and examined at bedside. She reports feeling well overall this morning. Denies abdominal cramping and no back pain today. Urinating without issue Tolerating meals overnight. Has been eating well and no n/v. Ambulating well. Has been passing gas and no bowel movements yet. Has some persistent lochia with some improvement this morning. Currently breast feeding but has had some difficulty, has also been supplementing with formula. States she still has the rash on her abdomen that she had prior to admission, states it has been itching but improving. Constitutional: no fever, no chills or no sweats Respiratory: no cough, no dyspnea or no wheezing Cardiovascular: no chest pain, no palpitations or no calf pain Breast: no breast pain Genitourinary (female): no dysuria Neurologic: no headache(s) Physical Exam <Jennifer Tilley DO - Last Filed: 05/31/22 07:56> Constitutional WD/WN, vitals as above no acute distress Respiratory no respiratory distress Auscultation: lungs clear to auscultation bilaterally; no rales, no rhonchi and no wheezes Cardiovascular RRR, no murmur, no edema Extremities: no calf tenderness and no edema Gastrointestinal (Abdomen) Inspection/Auscultation: normal bowel sounds Genitourinary uterine fundus firm, palpable below umbilicus Results & Data ([facility]) <Jennifer Tilley DO - Last Filed: 05/31/22 07:56> Vital Signs (Past 12 Hours) Vital Signs Temp Pulse Resp BP O2 Del Method 05/31/22 02:05 36.5 C 92 H 16 106/72 Room Air <Noemy Gutierres MD - Last Filed: 05/31/22 07:58> Co-Signing Physician Notes Resident Physician Supervision Note: I interviewed and examined the patient. Discussed with Dr. Tilley and agree with findings and plan as documented in the note. Any exceptions or clarifications are listed here: [ ] Documented By: Noemy Gutierres MD, FACOG
[2022-05-31] MEDS: PRENATAL VITAMIN 1 TAB PO SCH (08:02)
[2022-05-31] MEDS: FERROUS SULFATE 325 MG TAB PO SCH (08:03)
[2022-05-31] MEDS: SIMETHICONE 80 MG CHEW PO SCH (08:03)
[2022-05-31] MEDS: DOCUSATE SODIUM 100 MG CAP PO SCH (08:03)
[2022-05-31] MEDS ORDERED: bisacodyL 10 MG SUPP PR PRN (09:06)
--- NOTE | 2022-06-05 13:28 | Discharge Summary ---
Date of Service June 05, 2022 Admission HPI Per Admitting Provider 27 yo at 38 6/7 wga presents for preop for planned CS mon at 39 2/7 wga. +FM; denies ctx, LOF, VB PNI: CSx1, desires repeat palpitations s/p cardiology workup Past COIL WINDER STRAP Hx: G1 2019 pLTCS G2 2020 SAB G3 current 10/2021 ascus/hpv-, hx LEEP denies hx STIs Admission Exam (Per Admitting) Respiratory normal respiratory effort, lungs clear to auscultation Cardiovascular RRR, no murmur, no edema Genitourinary OB Exam Abdomen: + fundal height (38) and + heart tones (140s) Discharge Data Consultations 05/29/22 05:30 Consult Anesthesiology Stat Procedures Performed Operation Date: 05/29/22 07:30 Actual Procedures p Section (Delivery of Baby through Abdominal Incision) delivery of live female child at 0828(Bilateral) - Shabana Acosta MD Hospital Course (1) Encounter for supervision of normal in multigravida: (2) Previous section complicating : Plan 27 y/o at 39 2/7 wga presents for planned elective repeat CS. Consent previously reviewed in depth and signed after all questions answered to apparent satisfaction. See operative report for details. Postoperative course was uncomplicated and rash noted on admission to hospital was improving. She was discharged home on POD2 Coding Level of Care Code None Diagnoses Encounter for supervision of normal in multigravida Z34.80 Previous section complicating O34.219
== END 2022-05-31 12:00 | disposition home or self-care (01) | DRG 788 ==
LOC: ASU 05:29 → 4S1 05:30 → 4E2 11:42

== ENCOUNTER 2024-03-23 20:01 | Inpatient (IN) ==
--- NOTE | 2024-03-23 20:36 | History & Physical Report ---
Date of Service March 23, 2024 Assessment & Plan (1) Previous delivery affecting , antepartum: Plan: Given regular contractions and concern for thin lower uterine segment, discussed [facility] recommendations with patient. Would recommend delivery by section at this time. She is in agreement. We reviewed informed consent, discussed risks/benefits/alternatives. Anticipate increase in scar tissue given this will be her 3rd section, discussed risks of damage to internal organs/baby, risk of need for blood products, risks of blood clot/lung complications. History of Present Illness Chief Complaint: contractions Primary Care Provider: Crystal Ha MD 29yo @ 38 10/28, came to L&D with concern about contractions. At home, was not really sure if she was lesli or cramping - but feeling abdominal tightening and then maybe 4 contractions per hour. No leaking fluid, no vaginal bleeding. + movement. She saw MFM earlier in this d/t concern about thin lower uterine segment at prior . Recommendation from [facility] to deliver at 38 /7 by scheduled section, however if beyond 37w and develops signs/symptoms of labor, recommendation for delivery at that time. x 2 *? concern about scar, will bring to hrobmtg, discuss delivery timing [facility] consult- 10/04/23 @ [facility] recs: Deliver at 38w6d. If labor signs are present after 37w0d, delivery should occur without further delay. Scheduled for the recommended date at her 16wk visit. C/S SCHEDULED FOR 03/28/[address] HYATT AND DR. PEREZ ASSIST Kidney Stones Pap smear due at PPX GDM w/28wk glucola *Begin monthly Growth US's Allergies Allergy/AdvReac Type Severity Reaction Status Date / Time No Known Allergies Allergy Verified 03/19/24 13:09 Home Medications Medication Instructions Recorded Confirmed Type xhvgnien-[id number]-[id number]-FA 1 tab PO QPM 08/29/23 03/19/24 History [] acetone (urine) test (Ketone Urine #50 ea 02/11/24 03/19/24 Rx Test strips) blood sugar diagnostic (OneTouch #150 ea 02/11/24 03/19/24 Rx Verio test strips) blood-glucose meter (OneTouch #1 ea 02/11/24 03/19/24 Rx Verio Reflect Meter) lancets 33 gauge (EmersonTouch Delica #150 ea 02/11/24 03/19/24 Rx Plus Lancet) ferrous sulfate 325 mg (65 mg 325 mg PO QPM 02/19/24 03/19/24 History iron) tablet (Feosol) Patient History Medical History Anorexia hx, no current issues Anxiety no current meds Gestational diabetes mellitus (GDM) affecting History of COVID-19 Diagnosed 05/29/21 @ [facility] in [place]--fever, loss of taste/smell--no issues now October 2021 at [facility]. Asymptomatic, treated at ER for tachycardia History of PCOS Kidney stones caused flank pain in 12/2023, "still in there, has not passed them yet" Nausea and vomiting after administration of anesthetic agent Hx of scope patch used during D&E in 06/2021; did get sick after previous c- section 05/2022 and also had facial itching Tachycardia - Seen by Dr. Pfeiffer 03/2022- feels multifactorial- possibly related to but has baseline hx of low BP- cannot exclude component of autonomic dysfunction. Recent labs also showed anemia. Holter monitor showed only SR and only very rare supraventricular beats. 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 Grandmother (Maternal) Dyslipidemia Breast cancer great grandmother Mother Clotting disorder Gestational diabetes Connective tissue disease Hypertension Fibromuscular dysplasia Grandfather (Maternal) Prostate cancer Hypercholesteremia Aunt Colorectal cancer Other No family history of adverse response to anesthesia Denies family history of Ovarian cancer Social History Smoking Status: Never smoker Second Hand Exposure: No; Do You Dip or Chew Tobacco: No; Hx Alcohol Use: Yes (not while ) Hx Substance Use: No Preferred Language: Citizen [place] Communication Ability: Effective Visual Impairment: No Limitations Hearing Ability: Normal Ticket Writer Required: No Beliefs That Will Affect Care: None marital status: marital status details: Gallo Person [phone] Current Living Situation: Spouse and Family Current Living Situation Comment: Lives at home with spouse and 2 children current occupational status: employed 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 Other Information That Helps Us Care for You: No Feels Safe at Home: Yes Safety Concerns: Feels Safe At This Time Assistive Devices: None Review of Systems All systems reviewed & are unremarkable except as noted in HPI & below Physical Exam Physical Exam: FHT Cat 1 Donna Q 2-3 min SVE 1/70/-1 Constitutional: WD/WN, vitals as above Respiratory: normal respiratory effort, lungs clear to auscultation no respiratory distress Cardiovascular: Rate/Rhythm: regular rate and regular rhythm Gastrointestinal (Abdomen): Inspection/Auscultation: abdomen normal to inspection Percussion/Palpation: abdomen soft; abdomen nontender Gravid. No s/s chorio or abruption. Skin: no rashes, warm and dry Psychiatric: A+Ox3, euthymic affect Results & Data Vital Signs (Past 12 Hours) Vital Signs Temp Pulse Resp BP 03/23/24 20:10 36.6 C 18 03/23/24 20:08 109 H 112/70 Coding Level of Care Code None Diagnoses Previous delivery affecting , antepartum O34.219
[2024-03-23] MEDS: LACTATED RINGER'S 1,000 ML IV SCH (20:48)
[2024-03-23] MEDS ORDERED: MoRPHine SULFATE PF 1 MG/ML 10 ML AMP/VIAL ONE (21:10)
[2024-03-23] MEDS: CITRIC ACID/SODIUM CITRATE 15 ML UDC PO SCH (21:22)
[2024-03-23] MEDS: SCOPOLAMINE 1 MG/72 HR TDSY PATCH TD ONE (21:22)
[2024-03-23] MEDS ORDERED: ONDANSETRON INJ 2 MG/ML 2 ML VIAL IV PRN (21:27)
[2024-03-23] MEDS ORDERED: NALOXONE HCL 1 MG in SODIUM CHLORIDE 0.9% 1,000 ML IV PRN (21:27)
[2024-03-23] MEDS ORDERED: NALBUPHINE HCL 5 MG in SYRINGE 0 ML IV PRN (21:27)
[2024-03-23] MEDS ORDERED: DROPERIDOL 5 MG/2 ML VIAL IV PRN (21:27)
[2024-03-23] MEDS ORDERED: METOCLOPRAMIDE HCL 10 MG in SODIUM CHLORIDE 0.9% 50 ML IV PRN (21:27)
[2024-03-23] MEDS ORDERED: LACTATED RINGER'S 500 ML IV PRN (21:27)
[2024-03-23] MEDS ORDERED: NALOXONE HCL 0.4 MG/1 ML VIAL/CARP IV PRN (21:27)
[2024-03-23] MEDS ORDERED: diphenhydrAMINE 50 MG/ML VIAL IV PRN (21:27)
[2024-03-23] MEDS ORDERED: MEPERIDINE HCL 25 MG/ML CARP/VIAL IV PRN (21:27)
[2024-03-23] MEDS ORDERED: HYDROmorphone INJ 0.5 MG/0.5 ML SYR IV PRN (21:27)
[2024-03-23] MEDS ORDERED: MoRPHine SULFATE 2 MG/ML CARP IV PRN (21:27)
[2024-03-23] MEDS ORDERED: PROMETHAZINE HCL 6.25 MG in SODIUM CHLORIDE 0.9% 50 ML IV PRN (21:27)
[2024-03-23] MEDS ORDERED: MoRPHine SULFATE PF 1 MG/ML 10 ML AMP/VIAL INT SPINAL ONE (21:27)
[2024-03-23] MEDS ORDERED: ePHEDrine sulfate 50 MG/ML AMP IV PRN (21:27)
[2024-03-23] MEDS ORDERED: NALOXONE HCL 0.08 MG in SYRINGE 1.8 ML IV PRN (21:27)
--- NOTE | 2024-03-23 21:27 | Anesthesiology Consultation ---
Date of Service March 23, 2024 Assessment & Plan Chart Review Chart Review: Acceptable Risk for Surgery Consults Requested none History Surgery Operation Date: 03/23/24 20:45 Proposed Procedures p Section in - Myriam DenizJavier Woods DO Height/Weight Height: 5 ft 3 in Weight: 68.946 kg Allergies Allergy/AdvReac Type Severity Reaction Status Date / Time No Known Allergies Allergy Verified 03/19/24 13:09 Medications Home Medications Medication Instructions Recorded Confirmed Last Taken guzpumzp-sxl-Dn-FA 1 tab PO QPM 08/29/23 03/19/24 Unknown [] acetone (urine) test (Ketone Urine #50 ea 02/11/24 03/19/24 Unknown Test strips) blood sugar diagnostic (OneTouch #150 ea 02/11/24 03/19/24 Unknown Verio test strips) blood-glucose meter (OneTouch #1 ea 02/11/24 03/19/24 Unknown Verio Reflect Meter) lancets 33 gauge (OneTouch Delica #150 ea 02/11/24 03/19/24 Unknown Plus Lancet) ferrous sulfate 325 mg (65 mg 325 mg PO QPM 02/19/24 03/19/24 Unknown iron) tablet (Feosol) Active Medications Generic Name Dose Route Start Last Admin Trade Name Freq PRN Reason Stop Dose Admin Lactated Ringer's 1,000 mls @ 999 mls/hr 03/23/24 20:45 03/23/24 20:48 Lr IV 03/23/24 21:45 999 mls/hr .Q1H1M JESUS Administration NPO Date Last Intake of Fluids: 03/23/24 Time Last Intake of Fluids: 18:00 Date Last Intake of Solids: 03/23/24 Time Last Intake of Solids: 12:00 Past Medical History Medical History Anorexia hx, no current issues Anxiety no current meds Gestational diabetes mellitus (GDM) affecting History of COVID-19 Diagnosed 05/29/21 @ [facility] in [place]--fever, loss of taste/smell--no issues now October 2021 at [facility]. Asymptomatic, treated at ER for tachycardia History of PCOS Kidney stones caused flank pain in 12/2023, "still in there, has not passed them yet" Nausea and vomiting after administration of anesthetic agent Hx of scope patch used during D&E in 06/2021; did get sick after previous c- section 05/2022 and also had facial itching Tachycardia - Seen by Dr. Pfeiffer 03/2022- feels multifactorial- possibly related to but has baseline hx of low BP- cannot exclude component of autonomic dysfunction. Recent labs also showed anemia. Holter monitor showed only SR and only very rare supraventricular beats. Possible cardiac sequelae to Covid 19 infection - ECHO ordered - Patient reports she was placed on iron supplement and it has improved the s ymptoms; pt still f/u mn cardio>most recent 02/19/24 Past Family History Family History Father No problems noted. 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 History of ankle surgery hardware removal left ankle History of colposcopy History of dilatation and curettage (~06/2021) D&E History of open reduction and internal fixation (ORIF) procedure left ankle>hardware removed Hx of section x2 Hx of colonoscopy [place] teeth removed Social History Smoking Status: Never smoker Do You Dip or Chew Tobacco: No Hx Alcohol Use: Yes (not while ) alcohol intake frequency: a few times a month Hx Substance Use: No substance use type: does not use Physical Exam Vital Signs Last Vital Signs Temp 36.6 C 03/23/24 20:10 Pulse 109 H 03/23/24 20:08 Resp 18 03/23/24 20:10 BP 112/70 03/23/24 20:08
[2024-03-23] MEDS ORDERED: SODIUM CHLORIDE 0.9% 1,000 ML IV SCH (21:30)
[2024-03-23] MEDS ORDERED: NO NARCOTICS OR SEDATIVES SCH (21:30)
[2024-03-23] MEDS ORDERED: DC INTRASPINAL MORPHINE SCH (21:30)
[2024-03-23] MEDS: ceFAZolin 2000MG 2,000 MG/15 ML SYR IV SCH (21:30)
[2024-03-23 21:32] LABS: Basophils # (auto) 0.04 K/uL (0.00-0.20); Basophils % (auto) 0.4 %; Eosinophils # (auto) 0.05 K/uL (0.00-0.50); Eosinophils % (auto) 0.4 %; Hemoglobin 9.7 g/dl (12.0-16.0); Immature Granulocytes # (auto) 0.16 K/uL (0.01-0.20); Immature Granulocytes % (auto) 1.4 %; Lymphocytes % (auto) 23.2 %; Mean Corpuscular Hemoglobin 26.6 pg (25.0-34.0); Mean Corpuscular Hgb Conc 32.3 g/dL (32.0-36.0); Mean Corpuscular Volume 82.2 fL (80.0-100.0); Mean Platelet Volume 9.8 fL (9.4-12.4); Monocytes # (auto) 0.88 K/uL (0.11-0.59); Monocytes % (auto) 7.8 %; Neutrophils % (auto) 66.8 %; Platelet Count 382 K/uL (130-400); RDW Coefficient of Variation 13.4 % (11.5-14.5); RDW Standard Deviation 40.3 fL (36.4-46.3); Red Blood Count 3.65 M/uL (4.20-5.40); White Blood Count 11.23 K/ul (4.8-10.8)
[2024-03-23] MEDS ORDERED: LACTATED RINGER'S 1,000 ML IV SCH (21:45)
[2024-03-23] MEDS ORDERED: ONDANSETRON INJ 2 MG/ML 2 ML VIAL ONE (22:21)
[2024-03-23] MEDS ORDERED: PHENYLEPHRINE 100MCG/ML 10ML SYR IV ONE (22:21)
[2024-03-23] MEDS ORDERED: OXYTOCIN 10 UNITS/ML VIAL ONE ×3 (22:22→22:48)
[2024-03-23] MEDS ORDERED: PHENYLEPHRINE HCL 10 MG/ML VIAL ONE (22:23)
[2024-03-23] MEDS ORDERED: ePHEDrine sulfate 50 MG/5 ML SYR ONE (22:24)
--- NOTE | 2024-03-23 22:53 | Operative Report ---
PG Post Operative Report Pre & Post Diagnosis Operation Date: 03/23/24 20:45 Pre-Op Diagnosis: Hx of C/S X2 and LABOR Post-Op Diagnosis: Hx of C/S X2 and LABOR I identified the patient and participated in the time-out.: Yes Procedure Operation Date: 03/23/24 20:45 Actual Procedures p Repeat Low Transverse Section in - Myriam Woods DO Surgeon Myriam Woods DO Industrial Furnace Fabricator Diana Powers MD Estimated Blood Loss 368 Findings Consistent with Post-Op Diagnosis Normal appearing uterus, tubes, ovaries. Viable female , Apgars 8/9. Weight 8#0. Specimens Placenta, cord blood, cord gas Drains franco clear yellow Anesthesia Type Spinal Complications none Disposition Accompanied Patient To Recovery: No Disposition: L&D Indications 29yo @ 38 10/28, history of section x 2, in labor. Description of Procedure The patient was seen in her labor and delivery room, risks benefits and alternatives to surgery were reviewed. Informed consent obtained. Questions were answered. She was taken to the operating room, spinal anesthesia was administered. She was then prepared and draped in the usual sterile fashion in the supine position with a leftward tilt. Timeout was confirmed. A Pfannenstiel skin incision was made with a scalpel, and carried through to the underlying layer of fascia. Fascia was nicked at midline, and this incision was extended bilaterally. The superior aspect of the fascial incision was grasped with Juan Francisco clamps x2, elevated off the underlying rectus abdominis muscles, and dissected sharply and bluntly. In similar fashion, the inferior aspect of the fascial incision was dissected. The rectus abdominis muscles were , and the peritoneum was grasped with hemostats and entered sharply. This was extended bilaterally. The bladder flap was taken down carefully using Metzenbaum scissors. Using a new scalpel, a low transverse uterine incision was created. Clear amniotic fluid noted. The infant was delivered from a cephalic presentation. The head delivered, followed by shoulders and body. Spontaneous cry on the field. The cord was doubly clamped and cut, and the was handed off to the waiting idea man. A segment was retained for cord gases. Cord blood was obtained. The placenta was delivered spontaneously intact. The uterus was exteriorized, and cleared of all clots and debris. The hysterotomy incision was reapproximated using 0 Vicryl in a running locked stitch. A second layer of the same suture was used to imbricate the incision. Posterior uterus was evaluated and normal. The uterus was returned to the abdomen, and gutters were cleared of clots and debris. Excellent hemostasis was observed. The fascial incision was reapproximated using 0 Vicryl in a running stitch. The subcutaneous tissue was irrigated, and reapproximated using 2-0 plain gut in a running stitch. The skin was reapproximated using 4-0 Vicryl in a running subcuticular stitch. Steri-Strips and a bandage were applied. The patient tolerated the procedure well, and will be taken to the recovery area in stable and good condition. I attest to the content of the Intraoperative Record and any orders documented therein. Any exceptions are noted below. OB Procedure Charges 64766
[2024-03-23 23:11] LABS: Base Excess Cord Arterial Bld 0.3 mEq/L (-9-1.8); Base Excess Cord Venous Blood -0.2 mEq/L (-7.7-1.9); CO2 Cord Arterial Blood 48 mmHg (39.1-73.5); Cord Venous Blood HCO3 28 mmol/L (18.4-26.8); Cord Venous Blood PCO2 63 mmHg (30.4-57.2); Cord Venous Blood PO2 < 20 mmHg (14.1-43.3); Cord Venous Blood pH 7.26 (7.20-7.44); HCO3 Cord Arterial Blood 27 mmol/L (19.7-28.5); Oxygen Sat Cord Arterial Blood < 60.0 % (<60); PO2 Cord Arterial Blood 24 mmHg (4.1-31.7); pH Cord Arterial Blood 7.35 (7.1-7.38)
[2024-03-23] MEDS ORDERED: diphenhydrAMINE Capsule 25 MG CAP PO PRN (23:18)
[2024-03-23] MEDS ORDERED: HYDROCORTISONE ACETATE 25 MG SUPP PR PRN (23:18)
[2024-03-23] MEDS ORDERED: SENNA 8.6 MG TAB PO PRN (23:18)
[2024-03-23] MEDS ORDERED: MAGNESIUM HYDROXIDE SUSP 30 ML UDC PO PRN (23:18)
[2024-03-23] MEDS ORDERED: BENZOCAINE 20% SPRY 85 APPLN/85 GM CAN EXT PRN (23:18)
[2024-03-23 23:23] LABS: O2 Saturation Cord Venous Bld < 68.0 % (<68)
[2024-03-24] MEDS: CHECK SCOPOLAMINE PATCH PLACEMENT SCH (01:04)
[2024-03-24] MEDS: OXYTOCIN 30 UNITS/LR 1,003 ML IV SCH (01:05)
--- NOTE | 2024-03-24 01:53 | Anesthesiology Progress Note ---
Date of Service March 24, 2024 Anesthesia Post Procedure Vital Signs Vital Signs: Temp Pulse Resp BP Pulse Ox 03/24/24 01:06 110 H 103/61 03/24/24 01:03 118 H 95 03/24/24 00:58 110 H 95 03/24/24 00:55 36.5 C 18 03/24/24 00:53 114 H 03/24/24 00:53 119 H 93/60 L 96 03/24/24 00:48 112 H 95 03/24/24 00:43 103 H 96 03/24/24 00:38 106 H 95 03/24/24 00:33 119 H 95 03/24/24 00:28 113 H 96 03/24/24 00:25 36.8 C 18 03/24/24 00:24 111 H 110/51 L 03/24/24 00:23 114 H 95 03/24/24 00:18 114 H 96 03/24/24 00:13 119 H 95 03/24/24 00:08 91 03/24/24 00:08 114 H 03/24/24 00:08 112 H 86 L 03/24/24 00:03 116 H 95 03/23/24 23:58 110 H 96 03/23/24 23:53 116 H 03/23/24 23:53 126 H 104/55 L 98 03/23/24 23:48 111 H 97 03/23/24 23:45 18 03/23/24 23:43 92 H 97/55 L 97 03/23/24 23:38 109 H 98 03/23/24 23:35 18 03/23/24 23:33 111 H 99/56 L 99 03/23/24 23:28 108 H 99 03/23/24 23:26 107 H 97/67 L 03/23/24 23:25 18 03/23/24 23:23 108 H 99 03/23/24 23:18 112 H 98 03/23/24 23:15 18 03/23/24 23:14 103 H 130/55 L 03/23/24 23:13 102 H 99 03/23/24 23:08 109 H 03/23/24 23:08 104 H 178/68 H 100 03/23/24 23:05 18 03/23/24 23:04 108 H 88 L 03/23/24 23:03 106 H 75 L 03/23/24 22:58 104 H 88 L 03/23/24 22:57 104 H 86 L 03/23/24 22:55 36.5 C 18 03/23/24 22:53 112 H 103/59 L 03/23/24 20:45 18 03/23/24 20:10 36.6 C 18 03/23/24 20:08 109 H 112/70 Transfer of Care Handoff Completed per policy Notes Mental Status: alert / awake / arousable and participated in evaluation Nausea / Vomiting: adequately controlled Pain: adequately controlled Airway Patency, RR, SpO2: stable & adequate BP & HR: stable & adequate Hydration State: stable & adequate Neuraxial Anesthesia: was administered and sensory block is resolving Anesthetic Complications: no major complications apparent and Pt Satisfied with anesthetic care
[2024-03-24] MEDS: KETOROLAC 30 MG/ML VIAL IV PRN (04:36)
--- NOTE | 2024-03-24 06:20 | Obstetrical Progress Note ---
Date of Service March 24, 2024 Assessment & Plan (1) Encounter for care and examination after delivery: Plan 29yo PPD #1 s/p Doing well Encourage ambulation Discontinue Franco today Vial signs reviewed Pain control Encourage Rubella immune, BGT: O+ Continue post care Admission and Anticipated Discharge Date Admission Date: March 23, 2024 Supervising Physician Co-Signing Physician Notes Resident Physician Supervision Note: I interviewed and examined the patient. Discussed with Dr. Joaquín Padilla and agree with findings and plan as documented in the note. Any exceptions or clarifications are listed here: POD#1 doing well. No concerns. Continue routine postop care. Documented By: Myriam Woods, Subjective 29yo POD#1 s/p Ambulation: ambulating normally Voiding: On franco, will discontinue today Passing Gas: Yes Diet Tolerance: regular diet Lochia:: Small Feeding Type: breast feeding Current Pain Level: Moderate, responded to pain meds Resting comfortably this AM in NAD. Denies MARCELINO, CP, SOB, N/V/D, LE pain/swelling. Review of Systems Review of Systems: as per HPI Physical Exam Physical Exam: General: patient resting comfortably, NAD, non-toxic in appearance, AA&O x 4, answers questions appropriately. Skin: warm, dry, intact Heart: +S1/S2, regular, no m/r/g Lungs: equal air entry bilaterally, no rales/rhonchi/wheezes Abd: +BS, soft, NT/ND, uterine fundus firm at umbilicus, incision close, clean and dry, no signs of bleeding infection Ext: warm, no clubbing/cyanosis or edema, Terrie's neg. Neuro: nonfocal, patient AA&O x 4, speech intact, no facial droop, moving all extremities on command. Results & Data Vital Signs (Past 12 Hours) Vital Signs Temp Pulse Pulse Resp BP BP Pulse Ox 03/24/24 06:01 16 99 03/24/24 05:35 36.5 C 87 18 99/65 L 98 03/24/24 04:58 18 98 03/24/24 04:00 18 97 03/24/24 03:04 18 97 03/24/24 02:00 18 96 03/24/24 01:45 03/24/24 01:45 03/24/24 01:45 36.9 C 90 18 107/75 96 03/24/24 01:30 18 97 03/24/24 01:06 110 H 103/61 03/24/24 01:03 118 H 95 03/24/24 00:58 110 H 95 03/24/24 00:55 36.5 C 18 03/24/24 00:53 114 H 03/24/24 00:53 119 H 93/60 L 96 03/24/24 00:48 112 H 95 03/24/24 00:43 103 H 96 03/24/24 00:38 106 H 95 03/24/24 00:33 119 H 95 03/24/24 00:28 113 H 96 03/24/24 00:25 36.8 C 18 03/24/24 00:24 111 H 110/51 L 03/24/24 00:23 114 H 95 03/24/24 00:18 114 H 96 03/24/24 00:13 119 H 95 03/24/24 00:08 91 03/24/24 00:08 114 H 03/24/24 00:08 112 H 86 L 03/24/24 00:03 116 H 95 03/23/24 23:58 110 H 96 03/23/24 23:53 116 H 03/23/24 23:53 126 H 104/55 L 98 03/23/24 23:48 111 H 97 03/23/24 23:45 18 03/23/24 23:43 92 H 97/55 L 97 03/23/24 23:38 109 H 98 03/23/24 23:35 18 03/23/24 23:33 111 H 99/56 L 99 03/23/24 23:28 108 H 99 03/23/24 23:26 107 H 97/67 L 03/23/24 23:25 18 03/23/24 23:23 108 H 99 03/23/24 23:18 112 H 98 03/23/24 23:15 18 03/23/24 23:14 103 H 130/55 L 03/23/24 23:13 102 H 99 03/23/24 23:08 109 H 03/23/24 23:08 104 H 178/68 H 100 03/23/24 23:05 18 03/23/24 23:04 108 H 88 L 03/23/24 23:03 106 H 75 L 03/23/24 22:58 104 H 88 L 03/23/24 22:57 104 H 86 L 03/23/24 22:55 36.5 C 18 03/23/24 22:53 112 H 103/59 L 03/23/24 20:45 18 03/23/24 20:10 36.6 C 18 03/23/24 20:08 109 H 112/70 Pulse Ox O2 Del Method O2 Del Method 03/24/24 06:01 03/24/24 05:35 Room Air 03/24/24 04:58 03/24/24 04:00 03/24/24 03:04 03/24/24 02:00 03/24/24 01:45 Room Air 03/24/24 01:45 96 Room Air 03/24/24 01:45 Room Air 03/24/24 01:30 03/24/24 01:06 03/24/24 01:03 03/24/24 00:58 03/24/24 00:55 03/24/24 00:53 03/24/24 00:53 03/24/24 00:48 03/24/24 00:43 03/24/24 00:38 03/24/24 00:33 03/24/24 00:28 03/24/24 00:25 03/24/24 00:24 03/24/24 00:23 03/24/24 00:18 03/24/24 00:13 03/24/24 00:08 03/24/24 00:08 03/24/24 00:08 03/24/24 00:03 03/23/24 23:58 03/23/24 23:53 03/23/24 23:53 03/23/24 23:48 03/23/24 23:45 03/23/24 23:43 03/23/24 23:38 03/23/24 23:35 03/23/24 23:33 03/23/24 23:28 03/23/24 23:26 03/23/24 23:25 03/23/24 23:23 03/23/24 23:18 03/23/24 23:15 03/23/24 23:14 03/23/24 23:13 03/23/24 23:08 03/23/24 23:08 03/23/24 23:05 03/23/24 23:04 03/23/24 23:03 03/23/24 22:58 03/23/24 22:57 03/23/24 22:55 03/23/24 22:53 03/23/24 20:45 03/23/24 20:10 03/23/24 20:08 Resident Activity Tracking Resident Involvement: Resident Care Provided Care Provided: OB Delivery
[2024-03-24 06:28] LABS: Basophils # (auto) 0.03 K/uL (0.00-0.20); Basophils % (auto) 0.2 %; Hematocrit (blood only) 29.3 % (37.0-47.0); Hemoglobin 9.6 g/dl (12.0-16.0); Immature Granulocytes # (auto) 0.12 K/uL (0.01-0.20); Immature Granulocytes % (auto) 0.7 %; Lymphocytes # (auto) 1.64 K/uL (1.20-3.40); Lymphocytes % (auto) 8.9 %; Mean Corpuscular Hemoglobin 26.8 pg (25.0-34.0); Mean Corpuscular Hgb Conc 32.8 g/dL (32.0-36.0); Mean Corpuscular Volume 81.8 fL (80.0-100.0); Mean Platelet Volume 9.8 fL (9.4-12.4); Monocytes # (auto) 0.96 K/uL (0.11-0.59); Monocytes % (auto) 5.2 %; Neutrophils # (auto) 15.62 K/uL (1.40-6.50); Platelet Count 361 K/uL (130-400); RDW Coefficient of Variation 13.4 % (11.5-14.5); RDW Standard Deviation 40.2 fL (36.4-46.3); Red Blood Count 3.58 M/uL (4.20-5.40); White Blood Count 18.37 K/ul (4.8-10.8)
[2024-03-24] MEDS: SIMETHICONE 80 MG CHEW PO SCH (08:13)
[2024-03-24] MEDS: DOCUSATE SODIUM 100 MG CAP PO SCH (08:13)
[2024-03-24] MEDS: PRENATAL VITAMIN 1 TAB PO SCH (08:13)
[2024-03-24] MEDS: FERROUS SULFATE 325 MG TAB PO SCH (08:13)
[2024-03-24] MEDS: DIPHTHER/TETAN/PERTUS Vaccine (Tdap, Adol/Adult) 0.5mL IM ONE (11:20)
[2024-03-24] MEDS ORDERED: PROMETHAZINE HCL 25 MG in SODIUM CHLORIDE 0.9% 50 ML IV PRN (15:27)
[2024-03-24] MEDS ORDERED: diphenhydrAMINE 50 MG/ML VIAL IV PRN (15:27)
[2024-03-24] MEDS ORDERED: ONDANSETRON INJ 2 MG/ML 2 ML VIAL IV PRN (15:27)
[2024-03-24] MEDS ORDERED: KETOROLAC 30 MG/ML VIAL IV PRN (15:27)
[2024-03-24] MEDS ORDERED: LACTATED RINGER'S 1,000 ML IV SCH (15:30)
[2024-03-24] MEDS: oxyCODONE/ACETAMINOPHEN 5mg/325mg TAB PO PRN (20:49)
[2024-03-24] MEDS: bisacodyL 5 MG TABEC PO SCH (20:49)
[2024-03-24] MEDS: IBUPROFEN 600 MG TAB PO PRN (20:49)
--- NOTE | 2024-03-25 05:39 | Obstetrical Progress Note ---
Date of Service March 25, 2024 Assessment & Plan (1) Encounter for care and examination after delivery: Plan 29yo POD #2 s/p Feels well today Encourage ambulation Vial signs reviewed Pain control Encourage Rubella immune, BGT: O+ Continue post care Admission and Anticipated Discharge Date Admission Date: March 23, 2024 Supervising Physician Co-Signing Physician Notes Resident Physician Supervision Note: I interviewed and examined the patient. Discussed with Dr. Padilla and agree with findings and plan as documented in the note. Any exceptions or clarifications are listed here: Doing well pod #2. Continue routine care. Desires to stay until tomorrow. Documented By: Teressa Powers MD, FACOG Subjective 29yo POD#2 s/p Ambulation: ambulating normally Voiding: No voiding problems Passing Gas: Yes Diet Tolerance: regular diet Lochia:: Small Feeding Type: breast feeding Current Pain Level: Moderate, responded to pain meds Resting comfortably this AM in NAD. Denies MARCELINO, CP, SOB, N/V/D, LE pain/swelling. Review of Systems Review of Systems: as per HPI Physical Exam Physical Exam: General: patient resting comfortably, NAD, non-toxic in appearance, AA&O x 4, answers questions appropriately. Skin: warm, dry, intact Heart: +S1/S2, regular, no m/r/g Lungs: equal air entry bilaterally, no rales/rhonchi/wheezes Abd: +BS, soft, NT/ND, uterine fundus firm at umbilicus, incision close, clean and dry, no signs of bleeding infection Ext: warm, no clubbing/cyanosis or edema, Terrie's neg. Neuro: nonfocal, patient AA&O x 4, speech intact, no facial droop, moving all extremities on command. Results & Data Vital Signs (Past 12 Hours) Vital Signs Temp Pulse Resp BP Pulse Ox O2 Del Method 03/24/24 23:40 36.5 C 84 18 100/66 96 Room Air 03/24/24 20:30 37.0 C 100 H 20 101/68 97 Room Air Resident Activity Tracking Resident Involvement: Resident Care Provided Care Provided: OB Delivery
[2024-03-25 07:12] LABS: Hematocrit (blood only) 29.6 % (37.0-47.0); Hemoglobin 9.6 g/dl (12.0-16.0)
[2024-03-25] MEDS ORDERED: bisacodyL 10 MG SUPP PR PRN (22:55)
--- NOTE | 2024-03-26 06:23 | Obstetrical Progress Note ---
Date of Service March 26, 2024 Assessment & Plan (1) Encounter for care and examination after delivery: Plan 29yo POD #3 s/p Feels well today Encourage ambulation Vial signs reviewed Pain control Encourage Rubella immune, BGT: O+ Discharge home today, instructions reviewed. Follow up in 6 weeks at office Admission and Anticipated Discharge Date Admission Date: March 23, 2024 Supervising Physician Co-Signing Physician Notes Patient seen with resident and agree with the above findings and plan. Doing well and stable for discharge Subjective 29yo POD#3 s/p Ambulation: ambulating normally Voiding: No voiding problems Passing Gas: Yes Diet Tolerance: regular diet Lochia:: Small Feeding Type: breast feeding Current Pain Level: Moderate, responded to pain meds Resting comfortably this AM in NAD. Denies MARCELINO, CP, SOB, N/V/D, LE pain/swelling. Review of Systems Review of Systems: as per HPI Physical Exam Physical Exam: General: patient resting comfortably, NAD, non-toxic in appearance, AA&O x 4, answers questions appropriately. Skin: warm, dry, intact Heart: +S1/S2, regular, no m/r/g Lungs: equal air entry bilaterally, no rales/rhonchi/wheezes Abd: +BS, soft, NT/ND, uterine fundus firm at umbilicus, incision close, clean and dry, no signs of bleeding infection Ext: warm, no clubbing/cyanosis or edema, Terrie's neg. Neuro: nonfocal, patient AA&O x 4, speech intact, no facial droop, moving all extremities on command. Results & Data Vital Signs (Past 12 Hours) Vital Signs Temp Pulse Resp BP Pulse Ox O2 Del Method 03/25/24 23:45 36.8 C 76 16 98/64 L 96 Room Air 03/25/24 19:35 36.8 C 62 16 102/62 97 Room Air Resident Activity Tracking Resident Involvement: Resident Care Provided Care Provided: OB Delivery
--- NOTE | 2024-03-27 23:45 | Discharge Summary ---
Date of Service March 27, 2024 Admission HPI Per Admitting Provider 29yo @ 38 1/7, came to L&D with concern about contractions. At home, was not really sure if she was lesli or cramping - but feeling abdominal tightening and then maybe 4 contractions per hour. No leaking fluid, no vaginal bleeding. + movement. She saw [facility] earlier in this d/t concern about thin lower uterine segment at prior . Recommendation from [facility] to deliver at 38 6/7 by scheduled section, however if beyond 37w and develops signs/symptoms of labor, recommendation for delivery at that time. x 2 *? concern about scar, [place] [facility] [place] [facility] consult- 10/04/23 @ [facility] recs: Deliver at 38w6d. If labor signs are present after 37w0d, delivery should occur without further delay. Scheduled for the recommended date at her 16wk visit. C/S SCHEDULED FOR 03/28/[address] HYATT AND DR. PEREZ ASSIST Kidney Stones Pap smear due at PPX GDM w/28wk glucola *Begin monthly Growth US's Admission Exam (Per Admitting) Constitutional WD/WN, vitals as above Respiratory normal respiratory effort, lungs clear to auscultation no respiratory distress Cardiovascular Rate/Rhythm: regular rate and regular rhythm Gastrointestinal (Abdomen) Inspection/Auscultation: abdomen normal to inspection Percussion/Palpation: abdomen soft; abdomen nontender Skin no rashes, warm and dry Psychiatric A+Ox3, euthymic affect Discharge Data Consultations 03/23/24 20:32 Consult Anesthesiology Stat Procedures Performed Operation Date: 03/23/24 20:45 Actual Procedures p Section in LD(Bilateral) - Myriam Woods DO Hospital Course (1) Encounter for care and examination after delivery: Plan 29yo POD #3 s/p Feels well today Encourage ambulation Vial signs reviewed Pain control Encourage Rubella immune, BGT: O+ Discharge home today, instructions reviewed. Follow up in 6 weeks at office Coding Level of Care Code None Diagnoses Encounter for care and examination after delivery Z39.2
== END 2024-03-26 11:40 | disposition home or self-care (01) | DRG 788 ==
LOC: OPB 20:01 → 4S1 20:03 → 4E2 03-24 01:52
DX: Z3A.38 38 weeks gestation of pregnancy; O34.211 Maternal care for low transverse scar from previous cesarean delivery; Z37.0 Single live birth